=== PATIENT | female | born 1960 | race Caucasian/White ===

== ENCOUNTER 2018-07-28 09:42 | Inpatient (IN) | payer BC ==
[2018-07-28] MEDS ORDERED: HYDROmorphone 1 MG/ML 1 ML SYRINGE IVP STA (09:55)
[2018-07-28] MEDS ORDERED: ONDANSETRON 4 MG/2 ML VIAL IVP STA (09:55)
[2018-07-28] MEDS ORDERED: IBUPROFEN IV 600 MG in SODIUM CHLORIDE 0.9% 250 ML IV STA (10:03)
[2018-07-28] MEDS ORDERED: ACETAMINOPHEN IV (For NPO) 1,000 MG in EMPTY BAG 1 BAG IVPB STA (10:03)
--- NOTE | 2018-07-28 10:06 | ED ---
General Adult HPI - General Chief complaint: Abdominal Pain Stated complaint: ABD PAIN Time Seen by Provider: 07/28/18 09:55 Source: patient, RN notes reviewed Mode of arrival: ambulatory Limitations: no limitations - History of Present Illness Initial comments: This is a 57-year-old female who presents emergency Department with a past medical history significant for terminal bladder cancer. Patient had metastatic disease retroperitoneal area she has 2 nephrostomy tubes and supposedly at some point had a perforation of the bladder which they did nothing about. Patient has recently moved to the area and has not seen her oncologist yet. Patient comes in today complaining of lower abdominal pain. According to EMS when she got up and sat up and went to the bathroom the pain was much improved. Patient denies knowing of any fever or chills. Patient denies any chest pain difficulty breathing shortness of breath. Patient states she has diffuse abdominal pain that waxes and wanes. Patient states she doesn' t have any urine through her urethra. Patient denies any recent injury or trauma. - Related Data Home Medications Medication Instructions Recorded Confirmed Ferrous Sulfate [Feosol] 325 mg PO DAILY@1000 07/28/18 07/28/18 Gabapentin [Neurontin] 300 mg PO BID@1000,2200 07/28/18 07/28/18 Melatonin 10 mg PO HS@2200 07/28/18 07/28/18 Oxybutynin Chloride [Ditropan] 5 mg PO BID@1000,0 07/28/18 07/28/18 Sennosides [Senna] 17.2 mg PO BID@1000,2200 07/28/18 07/28/18 fentaNYL 100MCG/HR PATCH 1 patch TRANSDERM Q72H 07/28/18 07/28/18 [Duragesic 100MCG/HR] oxyCODONE HCL [OxyIR] 5 mg PO BID@1000,2200 07/28/18 07/28/18 Allergies Allergy/AdvReac Type Severity Reaction Status Date / Time No Known Allergies Allergy Verified 07/28/18 10:09 Review of Systems ROS Statement: Those systems with pertinent positive or pertinent negative responses have been documented in the HPI. ROS Other: All systems not noted in ROS Statement are negative. Past Medical History Past Medical History: Cancer Additional Past Medical History / Comment(s): stage IV bladder cancer History of Any Multi-Drug Resistant Organisms: None Reported Past Surgical History: Bladder Surgery Past Psychological History: No Psychological Hx Reported Smoking Status: Never smoker Past Alcohol Use History: None Reported Past Drug Use History: None Reported General Exam - General Exam Comments Initial Comments: GENERAL: Patient is well-developed and well-nourished. Patient is nontoxic and well- hydrated and is in mild distress. ENT: Neck is soft and supple. No significant lymphadenopathy is noted. Oropharynx is clear. Moist mucous membranes. Neck has full range of motion without eliciting any pain. EYES: The sclera were anicteric and conjunctiva were pink and moist. Extraocular movements were intact and pupils were equal round and reactive to light. Eyelids were unremarkable. PULMONARY: Unlabored respirations. Good breath sounds bilaterally. No audible rales rhonchi or wheezing was noted. CARDIOVASCULAR: There is a regular rate and rhythm without any murmurs gallops or rubs. ABDOMEN: Patient has tenderness diffusely throughout the abdomen no rebound is noted SKIN: Skin is clear with no lesions or rashes and otherwise unremarkable. NEUROLOGIC: Patient is alert and oriented x3. Cranial nerves II through XII are grossly intact. Motor and sensory are also intact. Normal speech, volume and content. Symmetrical smile. MUSCULOSKELETAL: Normal extremities with adequate strength and full range of motion. 1+ edema bilaterally LYMPHATICS: No significant lymphadenopathy is noted PSYCHIATRIC: Normal psychiatric evaluation. Limitations: no limitations Course Vital Signs 07/28/18 07/28/18 09:56 11:00 Temperature 100.4 F H Pulse Rate 95 75 Respiratory 18 18 Rate Blood Pressure 124/75 115/76 O2 Sat by Pulse 98 100 Oximetry Medical Decision Making - Medical Decision Making CAT scan shows possible neoplasm of the bladder as well as possible metastases to the liver. A little colitis Patient has a urinary infection I started the patient on Rocephin. Patient was feeling more comfortable with the pain medication she received. She felt comfortable staying in the hospital she wanted go back home I spoke with Dr. Cagle he agreed to admit I admitted the patient I consulted hospice EKG shows normal sinus rhythm at 71 bpm NJ interval is 112 QRS is 100 QT interval 442 QTC is 480. Patient's EKG shows Q waves in V1 and V2 and V3 no ST segment elevations noted - Lab Data Result diagrams: 07/28/18 10:19 07/28/18 10:19 Lab Results 02/07/28/18 07/28/18 Range/Units 10:19 10:19 10:19 WBC 6.4 (3.8-10.6) k/uL RBC 3.62 L (3.80-5.40) m/uL Hgb 10.6 L (11.4-16.0) gm/dL Hct 33.2 L (34.0-46.0) % MCV 91.8 (80.0-100.0) fL MCH 29.3 (25.0-35.0) pg MCHC 31.9 (31.0-37.0) g/dL RDW 15.7 H (11.5-15.5) % Plt Count 145 L (150-450) k/uL Neutrophils % 81 % Lymphocytes % 12 % Monocytes % 5 % Eosinophils % 1 % Basophils % 0 % Neutrophils # 5.2 (1.3-7.7) k/uL Lymphocytes # 0.7 L (1.0-4.8) k/uL Monocytes # 0.3 (0-1.0) k/uL Eosinophils # 0.1 (0-0.7) k/uL Basophils # 0.0 (0-0.2) k/uL PT (9.0-12.0) sec INR (<1.2) APTT (22.0-30.0) sec Sodium 135 L (137-145) mmol/L Potassium 3.1 L (3.5-5.1) mmol/L Chloride 98 (98-107) mmol/L Carbon Dioxide 29 (22-30) mmol/L Anion Gap 8 mmol/L BUN 8 (7-17) mg/dL Creatinine 0.77 (0.52-1.04) mg/dL Est GFR (CKD-EPI)AfAm >90 (>60 ml/min/1.73 sqM) Est GFR (CKD-EPI)NonAf 85 (>60 ml/min/1.73 sqM) Glucose 104 H (74-99) mg/dL Plasma Lactic Acid Bassam 1.1 (0.7-2.0) mmol/L Calcium 8.3 L (8.4-10.2) mg/dL Total Bilirubin 0.5 (0.2-1.3) mg/dL AST 25 (14-36) U/L ALT 26 (9-52) U/L Alkaline Phosphatase 153 H (38-126) U/L Total Protein 5.7 L (6.3-8.2) g/dL Albumin 2.4 L (3.5-5.0) g/dL Urine Color Urine Appearance (Clear) Urine pH (5.0-8.0) Ur Specific [place] (1.001-1.035) Urine Protein (Negative) Urine Glucose (UA) (Negative) Urine Ketones (Negative) Urine Blood (Negative) Urine Nitrite (Negative) Urine Bilirubin (Negative) Urine Urobilinogen (<2.0) mg/dL Ur Leukocyte Esterase (Negative) Urine RBC (0-5) /hpf Urine WBC (0-5) /hpf Urine Bacteria (None) /hpf Hyaline Casts (0-2) /lpf Urine Mucus (None) /hpf 07/28/18 07/28/18 Range/Units 10:19 10:19 WBC (3.8-10.6) k/uL RBC (3.80-5.40) m/uL Hgb (11.4-16.0) gm/dL Hct (34.0-46.0) % MCV (80.0-100.0) fL MCH (25.0-35.0) pg MCHC (31.0-37.0) g/dL RDW (11.5-15.5) % Plt Count (150-450) k/uL Neutrophils % % Lymphocytes % % Monocytes % % Eosinophils % % Basophils % % Neutrophils # (1.3-7.7) k/uL Lymphocytes # (1.0-4.8) k/uL Monocytes # (0-1.0) k/uL Eosinophils # (0-0.7) k/uL Basophils # (0-0.2) k/uL PT 12.2 H (9.0-12.0) sec INR 1.2 H (<1.2) APTT 26.2 (22.0-30.0) sec Sodium (137-145) mmol/L Potassium (3.5-5.1) mmol/L Chloride (98-107) mmol/L Carbon Dioxide (22-30) mmol/L Anion Gap mmol/L BUN (7-17) mg/dL Creatinine (0.52-1.04) mg/dL Est GFR (CKD-EPI)AfAm (>60 ml/min/1.73 sqM) Est GFR (CKD-EPI)NonAf (>60 ml/min/1.73 sqM) Glucose (74-99) mg/dL Plasma Lactic Acid Bassam (0.7-2.0) mmol/L Calcium (8.4-10.2) mg/dL Total Bilirubin (0.2-1.3) mg/dL AST (14-36) U/L ALT (9-52) U/L Alkaline Phosphatase (38-126) U/L Total Protein (6.3-8.2) g/dL Albumin (3.5-5.0) g/dL Urine Color Yellow Urine Appearance Cloudy H (Clear) Urine pH 7.5 (5.0-8.0) Ur Specific [place] 1.022 (1.001-1.035) Urine Protein 2+ H (Negative) Urine Glucose (UA) Negative (Negative) Urine Ketones Trace H (Negative) Urine Blood Moderate H (Negative) Urine Nitrite Negative (Negative) Urine Bilirubin Negative (Negative) Urine Urobilinogen <2.0 (<2.0) mg/dL Ur Leukocyte Esterase Large H (Negative) Urine RBC >182 H (0-5) /hpf Urine WBC 138 H (0-5) /hpf Urine Bacteria Few H (None) /hpf Hyaline Casts 9 H (0-2) /lpf Urine Mucus Many H (None) /hpf Disposition Clinical Impression: Urinary tract infection, Abdominal pain Disposition: ADMITTED IP TO THIS [facility] Referrals: None,Stated [Primary Care Provider] - 1-2 days Time of Disposition: 12:10
[2018-07-28] MEDS: SODIUM CHLORIDE 0.9% 500 ML 500 ML IV SCH ×2 (10:33→11:03)
[2018-07-28 10:43] LABS: Basophils % (A) 0 %; Eosinophils # (A) 0.1 k/uL (0-0.7); Eosinophils % (A) 1 %; HCT 33.2 % (34.0-46.0); HGB 10.6 gm/dL (11.4-16.0); Lymphocytes # (A) 0.7 k/uL (1.0-4.8); Lymphocytes % (A) 12 %; MCH 29.3 pg (25.0-35.0); MCHC 31.9 g/dL (31.0-37.0); MCV 91.8 fL (80.0-100.0); Mean Platelet Volume 6.7; Monocytes # (A) 0.3 k/uL (0-1.0); Monocytes % (A) 5 %; Neutrophils # (A) 5.2 k/uL (1.3-7.7); Neutrophils % (A) 81 %; Platelet Count 145 k/uL (150-450); RBC 3.62 m/uL (3.80-5.40); RDW 15.7 % (11.5-15.5); WBC 6.4 k/uL (3.8-10.6)
[2018-07-28 10:52] LABS: ALT 26 U/L (9-52); AST 25 U/L (14-36); Albumin 2.4 g/dL (3.5-5.0); Alkaline Phosphatase 153 U/L (38-126); Anion Gap 8 mmol/L; Blood Urea Nitrogen 8 mg/dL (7-17); Calcium 8.3 mg/dL (8.4-10.2); Carbon Dioxide 29 mmol/L (22-30); Chloride 98 mmol/L (98-107); Glucose 104 mg/dL (74-99); Potassium 3.1 mmol/L (3.5-5.1); Sodium 135 mmol/L (137-145); Total Bilirubin 0.5 mg/dL (0.2-1.3); Total Protein 5.7 g/dL (6.3-8.2)
[2018-07-28 10:57] LABS: INR 1.2 (<1.2); Partial Thromboplastin Time 26.2 sec (22.0-30.0); Prothrombin Time 12.2 sec (9.0-12.0)
--- NOTE | 2018-07-28 11:36 | CT ---
EXAMINATION TYPE: CT abdomen pelvis w con DATE OF EXAM: 07/28/2018 COMPARISON: None INDICATION: generalized pain, nausea, vomiting DLP: 1097.9 mGycm, Automated exposure control for dose reduction was used. CONTRAST: 100 mL of Isovue 300. Study performed without Oral Contrast TECHNIQUE: Axial images were obtained from above the diaphragm to the pubic rami in the axial plane a t 5 mm thick sections. Reconstructed images are reviewed on the computer in the coronal plane. FINDINGS: Limited CT sections are obtained the lung bases. There is a small left pleural effusion. Some adjace nt compressive atelectasis is present.. CT ABDOMEN: Liver: There is moderate fatty infiltration to the liver. There is some hypodensity within the medial right lobe liver. This has a transverse dimension of 1.8 cm an ill-defined margins. An additional ar ea adjacent to ligamentum teres has more circumscribed margins measures 1.9 cm and 1 Hounsfield unit is likely a cyst. Adjacent smaller cysts may be present. This could be multiloculated complex cyst. Spleen: Normal Pancreas: Normal Adrenal glands: The adrenal glands are normal. Gallbladder: Normal Kidneys: No masses are evident. No hydronephrosis is present. Bilateral nephrostomy tubes have their tips curled within the renal pelves. No cysts are present. Delayed images were obtained through the kidneys, which remain unremarkable. Couple of periaortic lymph nodes are at the level of the renal v eins measuring 0.7 to 0.8 cm in size. This is not enlarged by CT criteria. Aorta: Vascular calcification is within the aorta. Inferior vena cava: Normal. CT PELVIS: Loops of bowel are nondistended. However, there is a suggestion of some mild diffuse wall thickening through the ascending and transverse colon. The mid and distal descending colon is more normal appear ance. Sigmoid colon and rectum has more normal appearance. Consider colitis within the differential. Studies performed without oral contrast limiting bowel evaluation. Appendix: Normal as visualized. Urinary bladder: The urinary bladder is air-filled. Some fluid is within the urinary bladder. Urinary bladder corrales are thickened and somewhat irregular. Genitourinary structures: Uterus appears normal. Adnexal regions are clear. Osseous structures: No suspicious lytic or sclerotic lesions. Facet degenerative changes are within t he lumbar spine. IMPRESSIONS: 1. Irregular thickened urinary bladder wall which contains air. Urinary bladder neoplasm should be c onsidered. 2. Bilateral nephrostomy tubes without hydronephrosis. 3. Mild diffuse wall thickening within nondistended ascending and transverse colon to the splenic fle xure. Consider colitis potentially within the differential. Remaining bowel loops appear unremarkable . 4. Small left pleural effusion. 5. Irregular hypodense area within the superior right medial lobe liver. Neoplasm and complex cyst co uld be within the differential. 6. Moderate fatty infiltration to the liver. 7. Couple of additional hypodensities within the liver more likely related to complex cysts.
[2018-07-28 11:48] LABS: Appearance,Urine Cloudy (Clear); Bacteria,Urine Few /hpf; Bilirubin,Urine Negative (Negative); Blood,Urine Moderate (Negative); Color,Urine Yellow; Glucose,Urine (UA) Negative (Negative); Hyaline Casts,Urine 9 /lpf (0-2); Ketones,Urine Trace (Negative); Leukocyte Esterase,Urine Large (Negative); Mucus,Urine Many /hpf; Nitrite,Urine Negative (Negative); PH, Urine 7.5 (5.0-8.0); Protein,Urine 2+ (Negative); RBC,Urine >182 /hpf (0-5); Specific Gravity,Urine 1.022 (1.001-1.035); Urobilinogen,Urine <2.0 mg/dL (<2.0); WBC,Urine 138 /hpf (0-5)
[2018-07-28] MEDS ORDERED: SODIUM CHLORIDE 0.9% 1,000 ML IV ONE (12:16)
[2018-07-28] MEDS: HYDROmorphone 1 MG/ML 1 ML SYRINGE IVP PRN (17:57)
[2018-07-28] MEDS: GABAPENTIN 300 MG CAP PO SCH (21:24)
[2018-07-28] MEDS: OXYBUTYNIN CHLORIDE 5 MG TAB PO SCH (21:24)
[2018-07-28] MEDS ORDERED: MELATONIN 5 MG TABLET PO SCH (22:00)
[2018-07-29] MEDS: HYDROmorphone 1 MG/ML 1 ML SYRINGE IVP PRN ×2 (02:58→09:11)
--- NOTE | 2018-07-29 05:48 | HP ---
HISTORY AND PHYSICAL DATE OF ADMISSION: 07/28/2018 DATE OF SERVICE: 07/28/2018 PRESENTING COMPLAINT: Pelvic pain. HISTORY OF PRESENTING COMPLAINT: This is a very pleasant 57-year-old patient who will be establishing herself with Dr. Geiger. The patient has just moved from [place] to live with her daughter, Dianna Mascorro. The patient was diagnosed with bladder cancer down in [place] and this has been stage IV metastatic. The patient did complete chemotherapy and radiation treatment and as per the patient really did not benefit her much. Her oncologist did talk about immunotherapy, but thought it will be of minimal benefit. The patient moved to [place] with the idea of possibly hospice. The patient's pain is present on and off and has noticed more nausea in the last 2 weeks especially the last 2 days. Duragesic patch was increased to 100 mcg. Appetite has been decreased. The patient has lost about 100 pounds in last 2 years. The patient's preference is to spend time with her family. They also have been looking into hospice house and [facility] was consulted earlier this morning. Patient does use a sleep apnea machine. Otherwise, patient is able to get about. REVIEW OF SYSTEMS: CONSTITUTIONAL: Tired, decreased appetite, weight loss. HEENT: None. RESPIRATORY: None. CARDIOVASCULAR: None. GASTROINTESTINAL: As above. GENITOURINARY: None. MUSCULOSKELETAL: None. DERMATOLOGICAL: None. HEMATOLOGIC: None. LYMPHATICS: None. PSYCHIATRY: None. NEUROLOGICAL: None. PAST MEDICAL HISTORY: Past medical history of bladder cancer, metastatic, stage IV, obstructive sleep apnea. PAST SURGICAL HISTORY: Bladder surgery, tonsillectomy, bilateral nephrostomy tubes placed in April of last year. PSYCH HISTORY: Claustrophobia. SOCIAL HISTORY: The patient does marijuana occasionally. Smoked a pack a day for 20 years, stopped in 2013. Moved from [place]. 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 FAMILY HISTORY: Family history of cancer, hypothyroidism. HOME MEDICATIONS: 1. Senna 17.2 mg p.o. b.i.d. 2. Melatonin 10 mg q.h.s. 3. Ferrous sulfate 325 p.o. daily. 4. Oxycodone 5 mg p.o. b.i.d. 5. Ditropan 5 mg p.o. b.i.d. 6. Neurontin 300 mg b.i.d. 7. Fentanyl 100 mcg patch every 72 hours. ALLERGIES: None. PHYSICAL EXAMINATION: On examination, temperature 97.1, pulse 64, respirations 16, blood pressure 116/72, pulse ox 98% on room air. GENERAL APPEARANCE: Average built, BMI 32.3, lying in bed, a bit tired appearing. EYES: Pupils equal. Conjunctivae pale. HENT: External appearance of nose and ears normal. Oral cavity normal. NECK: JVD not raised. Mass not palpable. RESPIRATORY: Effort normal. LUNGS: Fair entry. CARDIOVASCULAR: First and second sounds normal, no edema. ABDOMEN: Soft. Minimal suprapubic tenderness. Liver and spleen not palpable. Nephrostomy tube bilateral placed. LYMPHATIC: No lymph node palpable in neck or axillae. PSYCHIATRY: Alert and oriented x3. Mood and affect normal. NEUROLOGICAL: Pupils equal. Cranial nerves grossly intact. Power and sensation grossly intact. INVESTIGATIONS: White count 6.4, hemoglobin 10.6, platelets 145. Potassium 3.1. BUN 8, creatinine 0.77. Albumin 2.4. UA positive for leukocyte esterase, WBC. ASSESSMENT: 1. Acute severe urinary tract infection probably from cystitis. 2. Metastatic bladder cancer, stage IV, status post chemo and radiation treatment, not really felt to suppose to get any further benefit from immunotherapy. 3. Obstructive sleep apnea, uses CPAP machine. 4. Obesity; body mass index 32.3. 5. Medical asthenia from underlying malignancy. 6. Hypoalbuminemia from mild protein calorie malnutrition. 7. Hypokalemia. 8. Nausea, likely a side effect of pain medication including heavy dose of fentanyl patch. PLAN: I had a very lengthy talk with the patient. Decided to cut back the dose of fentanyl to 50, use her short-acting morphine on a p.r.n. basis as the pain is not present all the time. We will also use baclofen for muscle spasm. I encouraged the patient to keep increasing her oral intake. ADVANCED CARE PLANNING: This was discussed at length with the patient. The patient was due to see Dr. Geiger and then to see oncologist at [place], but at this point patient feels that no further treatment will be helpful to her as she is not keen to and she would rather spend time with her family than running to a specialist, especially the prognosis is poor. At this point, if symptoms are controlled. She would rather want to go home, use pain medications. When the time comes, she would like to go to the [facility]. [facility] has already been consulted for the same. The patient's daughter Dianna is involved greatly in her care. About 30 minutes was spent in the advanced care planning part. Discussed at length with the patient. DEREK / REJI: [id number] /
[2018-07-29] MEDS ORDERED: ENOXAPARIN 40 MG/0.4 ML SYRINGE SQ SCH (09:00)
[2018-07-29] MEDS ORDERED: FAMOTIDINE 20 MG TAB PO SCH (09:00)
[2018-07-29] MEDS ORDERED: PSYLLIUM HUSK 100% 6 GM PACKET PO SCH (09:00)
[2018-07-29] MEDS: OXYBUTYNIN CHLORIDE 5 MG TAB PO SCH (09:09)
[2018-07-29] MEDS: NAPROXEN 250 MG TAB PO SCH ×2 (09:09→11:46)
[2018-07-29] MEDS: GABAPENTIN 300 MG CAP PO SCH (09:10)
[2018-07-29] MEDS: BACLOFEN 10 MG TAB PO SCH ×2 (11:50→17:08)
[2018-07-29 15:43] VITALS: BP 118/75; PULSE 76; RESP 18; TEMP 98.3
--- NOTE | 2018-07-30 11:17 | DS ---
DISCHARGE SUMMARY DATE OF ADMISSION: 07/28/2018 DATE OF DISCHARGE: 07/29/2018 FINAL DIAGNOSES: 1. Acute severe urinary tract infection from cystitis. 2. Metastatic bladder cancer, stage IV, status post chemo and radiation treatment, causing pain. 3. Obstructive sleep apnea, uses CPAP machine. 4. Obesity; body mass index 32.3. 5. Medical asthenia from underlying malignancy. 6. Constipation as a side effect of pain medications. 7. Hypoalbuminemia from mild protein calorie malnutrition. 8. Nausea is side effect of increased dose of fentanyl. 9. Hypokalemia. HOSPITAL COURSE: Please see my H and P for more details. The patient has known stage IV bladder cancer, metastatic, status post chemo and radiation. Her oncologist did tell her that any immunotherapy will not really benefit. Patient's dose of fentanyl was cut back from 100 to 50 and told her to take OxyContin on a p.r.n. basis. Other medications including baclofen and NSAIDs were added for pain control. Patient's nephrostomy tube is being scheduled with Interventional Radiology to be changed. The patient will remain on palliative care as she is rather active and patient had already contacted Visiting Nurses and patient will be going to the [facility] down the road. Care was discussed with the patient at length. All questions were answered. Also spoke to patient's daughter Qiana over the phone. Questions were answered. Discussion and discharge planning more than 35 minutes. PHYSICAL EXAMINATION: Temperature, 98.3, pulse 76, respiration 18, blood pressure 108/75, pulse ox 96% on room air. LUNGS: Fair entry. ABDOMEN: Soft, nontender. PSYCH: Alert and oriented x3. INVESTIGATIONS: White count 6.4, hemoglobin 10.6, potassium 3.1. Urine culture negative. DISCHARGE MEDICATIONS: 1. Ferrous sulfate 325 p.o. daily. 2. Neurontin 300 mg p.o. b.i.d. 3. Melatonin 10 mg q.h.s. 4. Ditropan 5 mg b.i.d. 5. Senna 17.2 p.o. b.i.d. 6. Baclofen 5 mg p.o. t.i.d. p.r.n. 7. Pepcid 20 mg p.o. b.i.d. 8. Naproxen 250 mg p.o. t.i.d. 9. Metamucil 6 g p.o. b.i.d. 10.Duragesic 50 mcg patch. 11.Oxycodone 5 mg p.o. b.i.d. p.r.n. 12.Discontinued Fentanyl patch. 13.Levaquin 250 mg a day for 7 days. FOLLOWUP: Follow up with Dr. Geiger on 08/02/2018. Patient is scheduled for a bilateral nephrostomy tube to be replaced on 08/02/2018 at 9 a.m. MMLESLEYL / IJN: [id number] /
== END 2018-07-29 18:45 | disposition home health service (06) | DRG 690 ==
LOC: EC 09:42 → 3NMEDONC 12:16
PROVIDERS: ADMIT Hospitalist; ATTEND Hospitalist
DX: N30.00 Acute cystitis without hematuria (principal); E44.1 Mild protein-calorie malnutrition; C78.6 Secondary malignant neoplasm of retroperitoneum and peritoneum; G47.33 Obstructive sleep apnea (adult) (pediatric); F40.240 Claustrophobia; E87.6 Hypokalemia; E66.9 Obesity, unspecified; R11.0 Nausea; T40.4X5A Adverse effect of other synthetic narcotics, initial encounter; Z79.891 Long term (current) use of opiate analgesic; Z79.899 Other long term (current) drug therapy; Z92.21 Personal history of antineoplastic chemotherapy; Z92.3 Personal history of irradiation; Z99.89 Dependence on other enabling machines and devices; Z87.891 Personal history of nicotine dependence; Z80.9 Family history of malignant neoplasm, unspecified; Z83.49 Family history of other endocrine, nutritional and metabolic diseases; Z68.32 Body mass index [BMI] 32.0-32.9, adult; Z93.6 Other artificial openings of urinary tract status
CPT/HCPCS: 36415; 74177; 80053; 81001; 83605; 85025; 85610; 85730; 87040; 87086; 93005; 96365; 96367; 96375; 99285

== ENCOUNTER 2018-07-30 11:02 | Emergency (ER) | payer BC ==
[2018-07-30 11:06] VITALS: TEMP 98
--- NOTE | 2018-07-30 12:03 | ED ---
Extremity Problem HPI - General Chief complaint: Extremity Problem,Nontraumatic Stated complaint: Leg swelling Time Seen by Provider: 07/30/18 11:08 Source: patient, family Mode of arrival: wheelchair Limitations: no limitations - History of Present Illness Initial comments: This is a 57-year-old female who presents with complaints of bilateral lower extremity swelling and pain more so on the left than the right recently treated. She is back today she recently did come back from [place] where she drove for 2 days to get that there. This is about 2 weeks ago. No shortness breath no chest pain no fevers chills nausea vomiting sweats or other symptoms. MD Complaint: extremity pain, extremity swelling - Related Data Home Medications Medication Instructions Recorded Confirmed Ferrous Sulfate [Iron (65 MG 325 mg PO DAILY@1000 07/28/18 07/30/18 Elemental)] Gabapentin [Neurontin] 300 mg PO BID@1000,2200 07/28/18 07/30/18 Melatonin 10 mg PO HS@2200 07/28/18 07/30/18 Oxybutynin Chloride [Ditropan] 5 mg PO BID@1000,2200 07/28/18 07/30/18 Sennosides [Senna] 17.2 mg PO BID 07/28/18 07/30/18 oxyCODONE HCL [OxyIR] 5 mg PO DAILY PRN 07/30/18 07/30/18 Previous Rx's Medication Instructions Recorded Famotidine [Pepcid] 20 mg PO BID #60 tab 07/29/18 Psyllium Husk 100% [Metamucil 6 gm PO BID #60 packet 07/29/18 Packet] fentaNYL 50MCG/HR PATCH [Duragesic 1 patch TRANSDERM Q72H #5 patch 07/29/18 50MCG/HR] Apixaban [Eliquis] 5 mg PO BID #40 tab 07/30/18 Apixaban [Eliquis] 10 mg PO BID #20 tab 07/30/18 Baclofen 5 mg PO Q8H PRN #20 tablet 07/30/18 Allergies Allergy/AdvReac Type Severity Reaction Status Date / Time No Known Allergies Allergy Verified 07/30/18 11:24 Review of Systems ROS Statement: Those systems with pertinent positive or pertinent negative responses have been documented in the HPI. ROS Other: All systems not noted in ROS Statement are negative. Past Medical History Past Medical History: Cancer, Sleep Apnea/CPAP/BIPAP Additional Past Medical History / Comment(s): stage IV bladder cancer- completed chemo september 2017 and completed radiation - stated had high blood pressure after chemo took meds for it untill apr 2018. has cpap machine History of Any Multi-Drug Resistant Organisms: None Reported Past Surgical History: Bladder Surgery, Tonsillectomy Additional Past Surgical History / Comment(s): bridgette nephrostomy tubes(apr 2018) bladder sx-"scrapping" Past Anesthesia/Blood Transfusion Reactions: Motion Sickness Additional Past Anesthesia/Blood Transfusion Reaction / Comment(s): clausterphobia. has had blood transfusions -no reaction to it Past Psychological History: No Psychological Hx Reported Smoking Status: Former smoker Past Alcohol Use History: None Reported Past Drug Use History: Marijuana - Past Family History Mother Additional Family Medical History / Comment(s): hypotension Father Family Medical History: Cancer Additional Family Medical History / Comment(s): bladder cancer General Exam - General Exam Comments Initial Comments: This is a well-developed well-nourished awake alert oriented 3 female Limitations: no limitations General appearance: alert, in no apparent distress Head exam: Present: atraumatic, normocephalic, normal inspection Eye exam: Present: normal appearance, PERRL, EOMI. Absent: scleral icterus, conjunctival injection, periorbital swelling ENT exam: Present: normal exam, mucous membranes moist Neck exam: Present: normal inspection. Absent: tenderness, meningismus, lymphadenopathy Respiratory exam: Present: normal lung sounds bilaterally. Absent: respiratory distress, wheezes, rales, rhonchi, stridor Cardiovascular Exam: Present: regular rate, normal rhythm, normal heart sounds, other (On my exam). Absent: systolic murmur, diastolic murmur, rubs, gallop, clicks GI/Abdominal exam: Present: soft, normal bowel sounds. Absent: distended, tenderness, guarding, rebound, rigid Extremities exam: Present: full ROM, tenderness (Edema noted to the left calf compared to the right some tenderness palpation over the anterior medial aspect of the distal thigh and the left. No sensorimotor or vascular deficits), normal capillary refill. Absent: pedal edema, joint swelling, calf tenderness Back exam: Present: normal inspection Neurological exam: Present: alert, oriented X3, CN II-XII intact Psychiatric exam: Present: normal affect, normal mood Skin exam: Present: warm, dry, intact, normal color. Absent: rash Course Vital Signs 07/30/18 11:02 Temperature 98 F Pulse Rate 115 H Respiratory 18 Rate Blood Pressure 108/80 O2 Sat by Pulse 98 Oximetry Medical Decision Making - Medical Decision Making I did discuss findings with the patient and her daughter was present. Also with Dr. Cagle. Patient be started on Eliquis in emergency department and sent home with a prescription. Her hemoglobin is stable as of 2 days ago 10.6. No increase in her bleeding. This time further testing and is not indicated. - Radiology Data Radiology results: report reviewed (I did review the imaging and report evidence of DVT in the left lower extremity. Please see the complete report), image reviewed Disposition Clinical Impression: Deep vein thrombosis of lower extremity, Malignant neoplasm metastatic from bladder, Chronic anemia Disposition: HOME SELF-CARE Condition: Good Instructions (If sedation given, give patient instructions): Deep Vein Thrombosis (ED), Deep Vein Thrombosis Prevention (ED) Additional Instructions: Compression stockings Prescriptions: Apixaban [Eliquis] 10 mg PO BID #20 tab Apixaban [Eliquis] 5 mg PO BID #40 tab Is patient prescribed a controlled substance at d/c from ED?: No Referrals: Howard Geiger DO [Primary Care Provider] - 1-2 days
--- NOTE | 2018-07-30 12:34 | US ---
EXAMINATION TYPE: US venous doppler duplex LE DATE OF EXAM: 07/30/2018 11:29 AM COMPARISON: NONE CLINICAL HISTORY: Pain. left leg pain and swelling, no h/o dvt SIDE PERFORMED: Bilateral TECHNIQUE: The lower extremity deep venous system is examined utilizing real time linear array sonog brendan with graded compression, doppler sonography and color-flow sonography. VESSELS IMAGED: External Iliac Vein (EIV) Common Femoral Vein Deep Femoral Vein Greater Saphenous Vein * Femoral Vein Popliteal Vein Small Saphenous Vein * Proximal Calf Veins (* superficial vessels) Right Leg: Appears negative for DVT. There is normal flow, compressibility, vascular waveforms. Left Leg: Internal echoes with minimal to no flow detected throughout left leg, unable to fully comp ress vein from proximal calf veins extending up through left EIV. IMPRESSION: Left lower extremity deep venous thrombosis seen throughout the distribution of the ex ternal iliac vein to the level of the knee
[2018-07-30] MEDS ORDERED: APIXABAN 5 MG TAB PO STA (12:40)
[2018-07-30 13:45] VITALS: BP 124/81; PULSE 81; RESP 19
== END 2018-07-30 13:49 | disposition home or self-care (01) ==
LOC: EC 11:02
DX: I82.402 Acute embolism and thrombosis of unspecified deep veins of left lower extremity (principal); C67.9 Malignant neoplasm of bladder, unspecified; C79.9 Secondary malignant neoplasm of unspecified site; D64.9 Anemia, unspecified; G47.30 Sleep apnea, unspecified; Z99.89 Dependence on other enabling machines and devices; Z92.21 Personal history of antineoplastic chemotherapy; Z87.891 Personal history of nicotine dependence; Z79.899 Other long term (current) drug therapy
CPT/HCPCS: 93970; 99284

== ENCOUNTER 2018-08-08 14:13 | Inpatient (IN) | payer BC ==
[2018-08-08] MEDS ORDERED: IBUPROFEN 600 MG TAB PO STA (15:05)
--- NOTE | 2018-08-08 15:07 | ED ---
General Adult HPI - General Chief complaint: Fever Stated complaint: Fever Time Seen by Provider: 08/08/18 14:30 Source: patient, RN notes reviewed Mode of arrival: wheelchair Limitations: no limitations - History of Present Illness Initial comments: This is a 57-year-old female who presents emergency Department complaining of having had a fever. Patient denies any new cough patient denies any chest pain or difficulty breathing. Patient denies any skin lesions rashes or erythematous areas. Patient states she did not get her flu shot. Patient has 2 nephrostomy tube secondary to her bladder cancer. She has had a urinary tract infection was last on antibiotics a couple weeks ago. Patient states she hasn't noted any change in the output or color of the year. Patient denies any abdominal pain or back pain. Patient denies any other symptoms at this time. - Related Data Home Medications Medication Instructions Recorded Confirmed Ferrous Sulfate [Iron (65 MG 325 mg PO DAILY@1000 07/28/18 08/08/18 Elemental)] Gabapentin [Neurontin] 300 mg PO BID@1000,2200 07/28/18 08/08/18 Melatonin 10 mg PO HS@2200 07/28/18 08/08/18 Oxybutynin Chloride [Ditropan] 5 mg PO BID@1000,2200 07/28/18 08/08/18 Sennosides [Senna] 17.2 mg PO BID 07/28/18 08/08/18 oxyCODONE HCL [OxyIR] 5 mg PO Q3H PRN 07/30/18 08/08/18 Apixaban [Eliquis] See Taper PO BID 08/08/18 08/08/18 Ondansetron [Zofran] 4 mg PO Q12HR PRN 08/08/18 08/08/18 Previous Rx's Medication Instructions Recorded fentaNYL 50MCG/HR PATCH [Duragesic 1 patch TRANSDERM Q72H #5 patch 07/29/18 50MCG/HR] Allergies Allergy/AdvReac Type Severity Reaction Status Date / Time No Known Allergies Allergy Verified 08/08/18 15:02 Review of Systems ROS Statement: Those systems with pertinent positive or pertinent negative responses have been documented in the HPI. ROS Other: All systems not noted in ROS Statement are negative. Past Medical History Past Medical History: Cancer, Deep Vein Thrombosis (DVT), Sleep Apnea/CPAP/BIPAP Additional Past Medical History / Comment(s): stage IV bladder cancer- completed chemo september 2017 and completed radiation - stated had high blood pressure after chemo took meds for it untill apr 2018. has cpap machine History of Any Multi-Drug Resistant Organisms: None Reported Past Surgical History: Bladder Surgery, Tonsillectomy Additional Past Surgical History / Comment(s): bridgette nephrostomy tubes(apr 2018) bladder sx-"scrapping" Past Anesthesia/Blood Transfusion Reactions: Motion Sickness Additional Past Anesthesia/Blood Transfusion Reaction / Comment(s): clausterphobia. has had blood transfusions -no reaction to it Past Psychological History: No Psychological Hx Reported Smoking Status: Former smoker Past Alcohol Use History: None Reported Past Drug Use History: Marijuana - Past Family History Mother Additional Family Medical History / Comment(s): hypotension Father Family Medical History: Cancer Additional Family Medical History / Comment(s): bladder cancer General Exam - General Exam Comments Initial Comments: GENERAL: Patient is well-developed and well-nourished. Patient is nontoxic and well- hydrated and is in mild distress. ENT: Neck is soft and supple. No significant lymphadenopathy is noted. Oropharynx is clear. Moist mucous membranes. Neck has full range of motion without eliciting any pain. EYES: The sclera were anicteric and conjunctiva were pink and moist. Extraocular movements were intact and pupils were equal round and reactive to light. Eyelids were unremarkable. PULMONARY: Unlabored respirations. Good breath sounds bilaterally. No audible rales r honchi or wheezing was noted. CARDIOVASCULAR: There is a regular rate and rhythm without any murmurs gallops or rubs. ABDOMEN: Soft and nontender with normal bowel sounds. No palpable organomegaly was noted. There is no palpable pulsatile mass. SKIN: Skin is clear with no lesions or rashes and otherwise unremarkable. NEUROLOGIC: Patient is alert and oriented x3. Cranial nerves II through XII are grossly intact. Motor and sensory are also intact. Normal speech, volume and content. Symmetrical smile. MUSCULOSKELETAL: Normal extremities with adequate strength and full range of motion. No lower extremity swelling or edema. No calf tenderness. LYMPHATICS: No significant lymphadenopathy is noted PSYCHIATRIC: Normal psychiatric evaluation. Limitations: no limitations Course Vital Signs 08/08/18 08/08/18 08/08/18 14:27 16:50 17:00 Temperature 102.6 F H 99.2 F Pulse Rate 139 H 112 H 97 Respiratory 18 18 18 Rate Blood Pressure 81/60 78/65 75/49 O2 Sat by Pulse 94 L 96 97 Oximetry 08/08/18 08/08/18 17:45 18:00 Temperature Pulse Rate 98 92 Respiratory 18 18 Rate Blood Pressure 74/52 81/54 O2 Sat by Pulse 96 94 L Oximetry Procedures - Sepsis Sepsis Focused Exam #1 Time Sepsis Criteria Met: 17:15 Sepsis Focused Exam Date: 08/08/18 Sepsis Focused Exam Time: 17:40 Sepsis Focused Exam Complete: Yes Vital Signs & RN Notes Reviewed: Yes Capillary Refill: < 2 Seconds: Fingers Peripheral Pulses: Weak: Radial (R) Skin Color: Normal for Patient Respiratory Exam: normal lung sounds Cardiovascular Exam: regular rate Medical Decision Making - Medical Decision Making EKG shows a sinus tachycardia with occasional PVC at 114 bpm DE interval is 134 QRS is 88 QT interval 320 QTC is 441. Patient occasionally had a PVC. Patient's ideal body weight is 64 kg. Chest x-ray shows left hilar mass. [facility]. I spoke Dr. Cagle agreed to admit the patient admitted the patient wrote admitting orders. Patient received a third liter of fluid because the patient's blood pressure remained low. I spoke with the veneer drier feeder he agreed to admit the patient admitted patient wrote admitting orders. - Lab Data Result diagrams: 08/08/18 15:27 08/08/18 15:27 Lab Results 08/08/18 08/08/18 08/08/18 Range/Units 15:27 15:27 15:27 WBC 17.0 H (3.8-10.6) k/uL RBC 3.25 L (3.80-5.40) m/uL Hgb 9.7 L (11.4-16.0) gm/dL Hct 31.1 L (34.0-46.0) % MCV 95.6 (80.0-100.0) fL MCH 30.0 (25.0-35.0) pg MCHC 31.4 (31.0-37.0) g/dL RDW 16.4 H (11.5-15.5) % Plt Count 175 (150-450) k/uL Neutrophils % 95 % Lymphocytes % 1 % Monocytes % 3 % Eosinophils % 0 % Basophils % 0 % Neutrophils # 16.2 H (1.3-7.7) k/uL Lymphocytes # 0.1 L (1.0-4.8) k/uL Monocytes # 0.6 (0-1.0) k/uL Eosinophils # 0.1 (0-0.7) k/uL Basophils # 0.1 (0-0.2) k/uL Hypochromasia Slight Anisocytosis Slight PT (9.0-12.0) sec INR (<1.2) APTT (22.0-30.0) sec Sodium 134 L (137-145) mmol/L Potassium 3.2 L (3.5-5.1) mmol/L Chloride 99 (98-107) mmol/L Carbon Dioxide 24 (22-30) mmol/L Anion Gap 11 mmol/L BUN 12 (7-17) mg/dL Creatinine 1.23 H (0.52-1.04) mg/dL Est GFR (CKD-EPI)AfAm 56 (>60 ml/min/1.73 sqM) Est GFR (CKD-EPI)NonAf 48 (>60 ml/min/1.73 sqM) Glucose 148 H (74-99) mg/dL Plasma Lactic Acid Bassam (0.7-2.0) mmol/L Calcium 8.0 L (8.4-10.2) mg/dL Total Bilirubin 0.5 (0.2-1.3) mg/dL AST 22 (14-36) U/L ALT 17 (9-52) U/L Alkaline Phosphatase 129 H (38-126) U/L Total Protein 5.5 L (6.3-8.2) g/dL Albumin 2.2 L (3.5-5.0) g/dL Urine Color Urine Appearance (Clear) Urine RBC (0-5) /hpf Urine WBC (0-5) /hpf Urine Mucus (None) /hpf Influenza Type A RNA Not Detected (Not Detectd) Influenza Type B (PCR) Not Detected (Not Detectd) 08/08/18 08/08/18 08/08/18 Range/Units 15:27 15:27 16:50 WBC (3.8-10.6) k/uL RBC (3.80-5.40) m/uL Hgb (11.4-16.0) gm/dL Hct (34.0-46.0) % MCV (80.0-100.0) fL MCH (25.0-35.0) pg MCHC (31.0-37.0) g/dL RDW (11.5-15.5) % Plt Count (150-450) k/uL Neutrophils % % Lymphocytes % % Monocytes % % Eosinophils % % Basophils % % Neutrophils # (1.3-7.7) k/uL Lymphocytes # (1.0-4.8) k/uL Monocytes # (0-1.0) k/uL Eosinophils # (0-0.7) k/uL Basophils # (0-0.2) k/uL Hypochromasia Anisocytosis PT 13.5 H (9.0-12.0) sec INR 1.3 H (<1.2) APTT 29.4 (22.0-30.0) sec Sodium (137-145) mmol/L Potassium (3.5-5.1) mmol/L Chloride (98-107) mmol/L Carbon Dioxide (22-30) mmol/L Anion Gap mmol/L BUN (7-17) mg/dL Creatinine (0.52-1.04) mg/dL Est GFR (CKD-EPI)AfAm (>60 ml/min/1.73 sqM) Est GFR (CKD-EPI)NonAf (>60 ml/min/1.73 sqM) Glucose (74-99) mg/dL Plasma Lactic Acid Bassam 5.5 H* (0.7-2.0) mmol/L Calcium (8.4-10.2) mg/dL Total Bilirubin (0.2-1.3) mg/dL AST (14-36) U/L ALT (9-52) U/L Alkaline Phosphatase (38-126) U/L Total Protein (6.3-8.2) g/dL Albumin (3.5-5.0) g/dL Urine Color Dark Red Urine Appearance Bloody H (Clear) Urine RBC >182 H (0-5) /hpf Urine WBC >182 H (0-5) /hpf Urine Mucus Occasional H (None) /hpf Influenza Type A RNA (Not Detectd) Influenza Type B (PCR) (Not Detectd) Critical Care Time Critical Care Time: Yes Total Critical Care Time: 35 Disposition Clinical Impression: Septic shock, Urinary tract infection, Lung mass Disposition: ADMITTED IP TO THIS HOSP Referrals: Howard Geiger DO [Primary Care Provider] - 1-2 days Time of Disposition: 17:41
[2018-08-08] MEDS: SODIUM CHLORIDE 0.9% 500 ML 500 ML IV SCH ×2 (15:23→15:53)
[2018-08-08 15:51] LABS: Albumin 2.2 g/dL (3.5-5.0); Potassium 3.2 mmol/L (3.5-5.1); Total Bilirubin 0.5 mg/dL (0.2-1.3); Total Protein 5.5 g/dL (6.3-8.2)
[2018-08-08 15:52] LABS: INR 1.3 (<1.2); Partial Thromboplastin Time 29.4 sec (22.0-30.0); Prothrombin Time 13.5 sec (9.0-12.0)
[2018-08-08 15:53] LABS: Anisocytosis Slight; Basophils # (A) 0.1 k/uL (0-0.2); Basophils % (A) 0 %; Eosinophils # (A) 0.1 k/uL (0-0.7); Eosinophils % (A) 0 %; HCT 31.1 % (34.0-46.0); HGB 9.7 gm/dL (11.4-16.0); Hypochromasia Slight; Lymphocytes # (A) 0.1 k/uL (1.0-4.8); Lymphocytes % (A) 1 %; MCHC 31.4 g/dL (31.0-37.0); MCV 95.6 fL (80.0-100.0); Monocytes # (A) 0.6 k/uL (0-1.0); Monocytes % (A) 3 %; Neutrophils # (A) 16.2 k/uL (1.3-7.7); Neutrophils % (A) 95 %; Platelet Count 175 k/uL (150-450); RBC 3.25 m/uL (3.80-5.40); RDW 16.4 % (11.5-15.5)
[2018-08-08] MEDS ORDERED: SODIUM CHLORIDE 0.9% 2,000 ML IV ONE (16:25)
[2018-08-08] MEDS ORDERED: cefTRIAXone IN SWFI 1,000 MG/10 ML SYRINGE IVP STA (16:25)
[2018-08-08 17:26] LABS: Mucus,Urine Occasional /hpf; RBC,Urine >182 /hpf (0-5); WBC,Urine >182 /hpf (0-5)
[2018-08-08 17:28] LABS: Appearance,Urine Bloody (Clear); Color,Urine Dark Red
--- NOTE | 2018-08-08 17:29 | XR ---
EXAMINATION TYPE: XR chest 2V DATE OF EXAM: 08/08/2018 COMPARISON: None HISTORY: Fever TECHNIQUE: Frontal and lateral views of the chest are obtained. FINDINGS: There is a Port-A-Cath in the right pectoral region, distal tip the catheter is overlying the superior vena cava. No pneumothorax. Left hilar mass is present. Minimal increased density at the posterior costophrenic angle. Heart size is normal. IMPRESSION: Left hilar mass
[2018-08-08] MEDS ORDERED: NOREPINEPHRINE 4 MG in SODIUM CHLORIDE 0.9% 250 ML IV ONE (18:05)
[2018-08-08] MEDS ORDERED: NALOXONE 0.4 MG/ML 1 ML VIAL IV PRN (18:39)
[2018-08-08 19:22] LABS: Glucose,Whole Blood 120 mg/dL (75-99)
[2018-08-08] MEDS ORDERED: Potassium Replacement Protocol 1 EACH MISC MISCELLANE PRN (20:03)
[2018-08-08] MEDS ORDERED: ONDANSETRON 4 MG TAB PO PRN (21:19)
[2018-08-08] MEDS: NOREPINEPHRINE 4 MG in SODIUM CHLORIDE 0.9% 250 ML IV SCH (21:57)
[2018-08-08] MEDS: SODIUM CHLORIDE 0.9% 1,000 ML IV SCH (21:57)
[2018-08-08] MEDS: POTASSIUM CHLORIDE ER 20 MEQ TAB.ER PO SCH ×2 (21:59→23:12)
[2018-08-08] MEDS: GABAPENTIN 300 MG CAP PO SCH (21:59)
[2018-08-08] MEDS: OXYBUTYNIN CHLORIDE 5 MG TAB PO SCH (22:00)
[2018-08-08] MEDS: MELATONIN 5 MG TABLET PO SCH (22:00)
[2018-08-09] MEDS: NOREPINEPHRINE 4 MG in SODIUM CHLORIDE 0.9% 250 ML IV SCH ×5 (00:57→23:16)
[2018-08-09] MEDS: SODIUM CHLORIDE 0.9% 1,000 ML IV SCH ×2 (05:16→13:53)
[2018-08-09 06:12] LABS: Calcium 7.1 mg/dL (8.4-10.2); Magnesium 1.2 mg/dL (1.6-2.3); Phosphorus 3.2 mg/dL (2.5-4.5)
[2018-08-09 06:14] LABS: Anisocytosis Slight; Basophils # (A) 0.1 k/uL (0-0.2); Basophils % (A) 0 %; Eosinophils % (A) 0 %; HCT 31.4 % (34.0-46.0); HGB 9.8 gm/dL (11.4-16.0); Hypochromasia Marked; Lymphocytes # (A) 0.2 k/uL (1.0-4.8); Lymphocytes % (A) 1 %; MCH 30.5 pg (25.0-35.0); MCHC 31.3 g/dL (31.0-37.0); MCV 97.5 fL (80.0-100.0); Macrocytosis Slight; Mean Platelet Volume 6.6; Monocytes # (A) 0.6 k/uL (0-1.0); Monocytes % (A) 4 %; Neutrophils % (A) 94 %; Platelet Count 133 k/uL (150-450); RBC 3.22 m/uL (3.80-5.40); RDW 16.5 % (11.5-15.5); WBC 15.9 k/uL (3.8-10.6)
[2018-08-09] MEDS ORDERED: Magnesium Replacement Protocol 1 EACH MISC MISCELLANE PRN (06:59)
[2018-08-09] MEDS: MAGNESIUM SULFATE-D5W PMX 1 GM in DEXTROSE/WATER 1 100ML.BAG IVPB SCH ×3 (07:25→10:08)
[2018-08-09] MEDS: SENNOSIDES 8.6 MG TAB PO SCH ×2 (09:00→21:25)
[2018-08-09] MEDS ORDERED: ACETAMINOPHEN TAB 325 MG TAB PO PRN (09:29)
[2018-08-09] MEDS ORDERED: ONDANSETRON 4 MG/2 ML VIAL IM STA (09:30)
--- NOTE | 2018-08-09 09:51 | XR ---
EXAMINATION TYPE: XR chest 1V DATE OF EXAM: 08/09/2018 COMPARISON: Prior chest x-ray 08/08/2018 HISTORY: Lung carcinoma, shortness of breath TECHNIQUE: Single frontal view of the chest is obtained. FINDINGS: Findings are similar to prior exam. IMPRESSION: Findings compatible with patient's history of lung carcinoma.
[2018-08-09 10:02] LABS: Glucose,Whole Blood 114 mg/dL (75-99)
--- NOTE | 2018-08-09 10:02 | P.CNPUL ---
History of Present Illness Consult date: 08/09/18 Requesting physician: Sarthak Cagle Chief complaint: Fever, hematuria, pelvic pain History of present illness: This is a 57-year-old white female patient who recently became established with Dr. Lyssa Geiger for primary care services, recently moved to [place] to live with her daughter from [place], [place]. Patient has a history of mucinous adenocarcinoma of the bladder. She was diagnosed in March 2017, and according to the patient initially the tumor was localized to the bladder, and measuring around 3 mm, no evidence of metastasis on initial PET scan. Patient had chemotherapy and radiation. Her chemotherapy was completed in [place], [place]. Patient follows with urologist, Dr. Franco and medical oncologist, Dr. Nichole from [facility] [place] [facility]. She had a r ecent PET scan done, and there was a mention of a lung mass or nodule, and is unsure of the details. She states despite the treatments the cancer had spread, and most recently she was considering palliative care. Patient had nephrostomy tube bilaterally inserted in April 2018 by interventional radiology in [place], for ureteral obstruction. In the last couple of days patient has been having pelvic discomfort, hematuria, yesterday her daughter noticed patient being febrile with a temp of 10 4F and patient was brought into the hospital for evaluation. Other history includes sleep apnea on CPAP therapy, DVT, hypertension. Patient is a former smoker, quit 15 years ago, prior to that smoked a pack a day for 15 years. Chest x-ray showed left hilar mass. She was recently hospitalized at this hospital in July for urinary tract infectionand cystitis. Urine culture and blood cultures from that admission showed no growth. Patient was treated with Levaquin, she had improved, and she was supposed to have her bilateral nephrostomy tubes replaced on 08/02/2018. Lab work showed leukocytosis, with the only blood cell count of 17, hemoglobin of 9.7, INR of 1.3, sodium of 134, potassium is 3.2, BUN of 12 and creatinine 1.23, digestive of 5.5, ALT and AST were within normal limits, alkaline phosphatase was 129, urine quite bloody, and the urinalysis showed red blood cells and greater than 182, and white blood cells and greater than 182. Influenza screen was negative, patient was fluid resuscitated in the emergency department, she was hypotensive, she received a total of 3 L of normal saline, she is currently on 0.9 normal saline at a rate of 125 ML per hour, on the levo fed at 50 mics per minutes. She is to be febrile, but she is awake, alert, oriented 3, cultures, and urine culture was sent and results are pending at this time. Antibiotic coverage includes Rocephin. There is blood-tinged cloudy moody-colored urine from the nephrostomy tubes. Patient denies any pulmonary complaints, does still have some pelvic tenderness, and hematuria. Review of Systems All systems: negative Constitutional: Denies chills, Denies fever Eyes: denies blurred vision, denies pain Ears, nose, mouth and throat: Denies headache, Denies sore throat Cardiovascular: Denies chest pain, Denies shortness of breath Respiratory: Denies cough Gastrointestinal: Denies abdominal pain, Denies diarrhea, Denies nausea, Denies vomiting Genitourinary: Reports dysuria, Reports hematuria Musculoskeletal: Denies myalgias Integumentary: Denies pruritus, Denies rash Neurological: Denies numbness, Denies weakness Psychiatric: Denies anxiety, Denies depression Endocrine: Denies fatigue, Denies weight change Past Medical History Past Medical History: Cancer, Deep Vein Thrombosis (DVT), Sleep Apnea/CPAP/BIPAP Additional Past Medical History / Comment(s): stage IV bladder cancer- completed chemo september 2017 and completed radiation - stated had high blood pressure after chemo took meds for it untill apr 2018. has cpap machine History of Any Multi-Drug Resistant Organisms: None Reported Past Surgical History: Bladder Surgery, Tonsillectomy Additional Past Surgical History / Comment(s): bridgette nephrostomy tubes(apr 2018) bladder sx-"scrapping" Past Anesthesia/Blood Transfusion Reactions: Motion Sickness Additional Past Anesthesia/Blood Transfusion Reaction / Comment(s): clausterphobia. has had blood transfusions -no reaction to it Past Psychological History: No Psychological Hx Reported Additional Psychological History / Comment(s): recently moved back here from [place]. living with her daughter. Smoking Status: Former smoker Past Alcohol Use History: None Reported Additional Past Alcohol Use History / Comment(s): started smoking at age 23 and quit 2004 smoked 1 ppd Past Drug Use History: Marijuana Additional Drug Use History / Comment(s): occ use of marijuana.last time used was 5 days ago. - Past Family History Mother Additional Family Medical History / Comment(s): hypotension Father Family Medical History: Cancer Additional Family Medical History / Comment(s): bladder cancer Medications and Allergies Home Medications Medication Instructions Recorded Confirmed Type Ferrous Sulfate [Iron (65 MG 325 mg PO DAILY@1000 07/28/18 08/08/18 History Elemental)] Gabapentin [Neurontin] 300 mg PO BID@1000,2200 07/28/18 08/08/18 History Melatonin 10 mg PO HS@0 07/28/18 08/08/18 History Oxybutynin Chloride [Ditropan] 5 mg PO BID@1000,2200 07/28/18 08/08/18 History Sennosides [Senna] 17.2 mg PO BID 07/28/18 08/08/18 History fentaNYL 50MCG/HR PATCH [Duragesic 1 patch TRANSDERM Q72H #5 patch 07/29/18 08/08/18 Rx 50MCG/HR] oxyCODONE HCL [OxyIR] 5 mg PO Q3H PRN 07/30/18 08/08/18 History Apixaban [Eliquis] See Taper PO BID 08/08/18 08/08/18 History Ondansetron [Zofran] 4 mg PO Q12HR PRN 08/08/18 08/08/18 History Allergies Allergy/AdvReac Type Severity Reaction Status Date / Time No Known Allergies Allergy Verified 08/08/18 15:02 Physical Exam Vitals: Vital Signs Temp Pulse Pulse Resp BP BP Pulse Ox 08/09/18 07:15 95 11 L 93/55 96 08/09/18 07:00 97 19 91/56 94 L 08/09/18 06:45 97 19 91/57 95 08/09/18 06:30 96 19 79/59 94 L 08/09/18 06:15 99 23 95/58 95 08/09/18 06:00 98 20 93/62 94 L 08/09/18 05:45 98 16 92/57 94 L 08/09/18 05:30 98 17 95/57 94 L 08/09/18 05:15 96 18 97/63 94 L 08/09/18 05:00 96 16 97/61 97 08/09/18 04:45 96 12 99/75 97 08/09/18 04:30 101 H 31 H 83/56 90 L 08/09/18 04:15 92 17 97/61 92 L 08/09/18 04:00 98.7 F 93 17 93/58 93 L 08/09/18 03:45 93 13 99/65 93 L 08/09/18 03:30 94 12 105/62 92 L 08/09/18 03:15 94 15 110/69 92 L 08/09/18 03:00 98 12 102/64 93 L 08/09/18 02:45 112 H 20 133/109 95 08/09/18 02:30 116 H 21 86/66 96 08/09/18 02:15 103 H 17 98/59 94 L 08/09/18 02:00 84 13 86/55 95 08/09/18 01:45 76 13 87/57 96 08/09/18 01:30 78 13 103/65 96 08/09/18 01:15 81 15 130/92 96 08/09/18 01:00 97.7 F 98 15 137/77 100 08/09/18 00:45 74 13 120/72 99 08/09/18 00:30 77 15 115/68 95 08/09/18 00:24 76 13 115/68 96 08/09/18 00:15 77 13 119/69 96 08/09/18 00:00 97.2 F L 66 11 L 113/82 96 08/08/18 23:45 67 8 L 114/72 95 08/08/18 23:30 66 11 L 119/74 96 08/08/18 23:15 76 14 96/65 95 08/08/18 23:00 76 23 123/74 95 08/08/18 22:45 79 13 114/76 95 08/08/18 22:30 79 18 127/77 94 L 08/08/18 22:15 74 13 112/62 94 L 08/08/18 22:00 75 16 106/71 95 08/08/18 21:45 71 15 111/65 95 08/08/18 21:30 75 13 80/50 95 08/08/18 21:15 80 12 104/66 95 08/08/18 21:00 80 13 91/62 96 08/08/18 20:45 89 17 101/63 96 08/08/18 20:30 85 15 102/60 94 L 08/08/18 20:15 87 15 96/60 95 08/08/18 20:00 86 15 90/68 96 08/08/18 19:30 98.4 F 85 20 94/63 95 08/08/18 19:22 84 17 95 08/08/18 19:07 98.4 F 81 10 L 91/62 95 08/08/18 19:00 92 18 79/51 96 08/08/18 18:55 92 18 77/49 96 08/08/18 18:45 92 18 74/49 08/08/18 18:30 92 18 68/51 94 L 08/08/18 18:00 92 18 81/54 94 L 08/08/18 17:45 98 18 74/52 96 08/08/18 17:00 97 18 75/49 97 08/08/18 16:50 99.2 F 112 H 18 78/65 96 08/08/18 14:27 102.6 F H 139 H 18 81/60 94 L Intake and Output 08/08/18 08/09/18 08/09/18 22:59 06:59 14:59 Intake Total 194.689 2447.004 125 Output Total 200 575 50 Balance 460.036 805.004 75 Intake: IV 375 1000 125 Sodium Chloride 0.9% 1, 375 1000 125 000 ml @ 125 mls/hr IV . Q8H COUNTS INCLUDE 234 BEDS AT THE [facility] Rx#:[id number] Intake, IV Titration 285.036 380.004 Amount Norepinephrine 4 mg In 193.746 Sodium Chloride 0.9% 250 ml @ 0.05 MCG/KG/MIN 18. 405 mls/hr IV .[id number] [facility] Rx#:[id number] Norepinephrine 4 mg In 91.29 380.004 Sodium Chloride 0.9% 250 ml @ 0.05 MCG/KG/MIN 18. 405 mls/hr IV .[id number] COUNTS INCLUDE 234 BEDS AT THE [facility] Rx#:[id number] Output: Urine 200 575 50 Other: Weight 97 kg GENERAL EXAM: Alert, pleasant, 57-year-old white female, 2 L per nasal cannula comfortable in no apparent distress. HEAD: Normocephalic/atraumatic. EYES: Normal reaction of pupils, equal size. Conjunctiva pink, sclera white. NOSE: Clear with pink turbinates. THROAT: No erythema or exudates. NECK: No masses, no JVD, no thyroid enlargement, no adenopathy. CHEST: No chest wall deformity. Symmetrical expansion. LUNGS: Equal air entry with no crackles, wheeze, rhonchi or dullness. CVS: Regular rate and rhythm, normal S1 and S2, no gallops, no murmurs, no rubs ABDOMEN: Soft, nontender. No hepatosplenomegaly, normal bowel sounds, no guarding or rigidity. Bilateral nephrostomy tubes present, and is moody colored blood-tinged colored urine and nephrostomy bags EXTREMITIES: No clubbing, no edema, no cyanosis, 2+ pulses and upper and lower extremities. MUSCULOSKELETAL: Muscle strength and tone normal. SPINE: No scoliosis or deformity SKIN: No rashes CENTRAL NERVOUS SYSTEM: Alert and oriented -3. No focal deficits, tone is normal in all 4 extremities. PSYCHIATRIC: Alert and oriented -3. Appropriate affect. Intact judgment and insight. Results - Laboratory Findings CBC and BMP: 08/09/18 05:30 08/09/18 05:30 PT/INR, D-dimer PT 13.5 sec (9.0-12.0) H 08/08/18 15:27 INR 1.3 (<1.2) H 08/08/18 15:27 Abnormal lab findings: Abnormal Labs 08/08/18 08/08/18 08/08/18 15:27 15:27 15:27 WBC 17.0 H RBC 3.25 L Hgb 9.7 L Hct 31.1 L RDW 16.4 H Plt Count Neutrophils # 16.2 H Lymphocytes # 0.1 L PT INR Sodium 134 L Potassium 3.2 L Chloride Carbon Dioxide Creatinine 1.23 H Glucose 148 H POC Glucose (mg/dL) Plasma Lactic Acid Bassam 5.5 H* Calcium 8.0 L Magnesium Alkaline Phosphatase 129 H Total Protein 5.5 L Albumin 2.2 L Urine Appearance Urine RBC Urine WBC Urine Mucus 08/08/18 08/08/18 08/08/18 15:27 16:50 19:18 WBC RBC Hgb Hct RDW Plt Count Neutrophils # Lymphocytes # PT 13.5 H INR 1.3 H Sodium Potassium Chloride Carbon Dioxide Creatinine Glucose POC Glucose (mg/dL) 120 H Plasma Lactic Acid Bassam Calcium Magnesium Alkaline Phosphatase Total Protein Albumin Urine Appearance Bloody H Urine RBC >182 H Urine WBC >182 H Urine Mucus Occasional H 08/08/18 08/09/18 08/09/18 19:28 05:30 05:30 WBC 15.9 H RBC 3.22 L Hgb 9.8 L Hct 31.4 L RDW 16.5 H Plt Count 133 L Neutrophils # 15.0 H Lymphocytes # 0.2 L PT INR Sodium 136 L Potassium Chloride 109 H Carbon Dioxide 18 L Creatinine 1.13 H Glucose 121 H POC Glucose (mg/dL) Plasma Lactic Acid Bassam 2.4 H* Calcium 7.1 L Magnesium 1.2 L Alkaline Phosphatase Total Protein Albumin Urine Appearance Urine RBC Urine WBC Urine Mucus - Diagnostic Findings Chest x-ray: report reviewed, image reviewed Assessment and Plan Plan: Assessment: #1. Septic shock related to acute urinary tract infection, urinalysis showed hematuria, red blood cells and white blood cells #2. Anion gap metabolic acidosis, related to lactic acidosis, due to sepsis #3. 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 Patient had a recent PET scan done in [place], which showed metastasis to the lung. Most recently patient had a abdomen/pelvis CT which showed irregular hypodense area within the superior right medial lobe of the liver, biliary related to neoplasm. #4. Left hilar mass, possibly related to metastasis #5. Recent hospitalization for acute urinary tract infection and cystitis, treated with Levaquin, cultures were negative on that admission #6. Chronic anemia #7. Hypokalemia #8. Acute kidney injury related to hypotension sepsis #9. Former smoker, carries [id number] smoking history, quit 15 years ago #10. Hypertension #11. History of DVTs on Eliquis Plan: Current antibiotic coverage, cultures are pending, patient will receive another 2 L of IV fluid boluses, lactic acid is trending down, but patient remains febrile. No altered mentation. We will ask urology service and medical oncology to see the patient, will obtain records from Dr. Geiger's and her treating medical oncologist from [place]. OBtain random serum cortisol, obtain TSH. Resume patient's anticoagulation. She was seen and evaluated by Dr. Steen. I performed a history & physical examination of the patient and discussed their management with my nurse practitioner, Colette Villarreal. I reviewed the nurse practitioner's note and agree with the documented findings and plan of care. Lung sounds are positive for clear breath sounds. The findings and the impression was discussed with the patient. I attest to the documentation by the nurse practitioner. Time with Patient: Greater than 30
[2018-08-09] MEDS: OXYBUTYNIN CHLORIDE 5 MG TAB PO SCH ×2 (10:12→21:25)
[2018-08-09] MEDS: FERROUS SULFATE 325 MG TAB PO SCH (10:12)
[2018-08-09] MEDS: GABAPENTIN 300 MG CAP PO SCH ×2 (10:12→21:25)
[2018-08-09] MEDS ORDERED: SODIUM CHLORIDE 0.9% 2,000 ML IV ONE (10:35)
--- NOTE | 2018-08-09 16:42 | P.GSCN ---
History of Present Illness Consult date: 08/09/18 Reason for Consult: Bladder cancer History of present illness: The patient is a 57-year-old female admitted through the emergency room yesterday for evaluation of sepsis secondary to a urinary tract infection. The patient had felt tired on 08/07 and became more lethargic on 08/08. She developed fever and chills at home and came to the emergency room where she was noted to be hypotensive with a temperature of 102.6. White blood count was 17,000. Lactic acid was 2.4. The patient was started on Rocephin and given IV fluids. She has required levo fed to maintain her blood pressure and was transferred to the intensive care unit. She says she feels better overall although she did have a single episode of vomiting this morning which may have been related to a brief episode of SVT. She had a temperature of 101 this morning but has been afebrile since then. She complains of lower abdominal discomfort which has been present for several days. The patient's history is significant in regard to mucinous adenocarcinoma of the bladder which was diagnosed in 03/2017. She says she had a PET scan at that time that showed no evidence of metastatic disease. She was treated with chemotherapy initially and then received additional radiation therapy in 01/2018. She says she had a PET scan around that time that suggested lymph node metast asis and possible pulmonary metastasis. He developed ureteral obstruction and bilateral nephrostomy tubes were placed in 04/2018. The majority of the patient's treatment had been performed in [place] and the patient most recently moved to this area. She developed deep venous thrombosis involving the left leg and was treated at this hospital in late 07/2018 and has been started on liquids. Computed tomography scan of the abdomen and pelvis on 07/28 showed good position of the nephrostomy tubes. There was nonspecific thickening of the bladder and air present within the bladder. A voided urine at that time grew greater than 100,000 colonies of mixed organisms consistent with skin and genital contamination. The patient says that her nephrostomy tubes have been draining well since they were placed. She says she has intermittent passage of bloody fluid either from the urethra or vagina and this has been going on for several months. She has been treated with oxybutynin due to bladder spasms with some improvement. She denies any pneumaturia. She says her bowels have been moving normally. Review of Systems - Constitutional Reports chills, Reports fever, Reports lethargy - Respiratory Denies cough, Denies wheezing - Gastrointestinal Reports as per HPI - Genitourinary Genitourinary: Reports as per HPI Past Medical History Past Medical History: Cancer, Deep Vein Thrombosis (DVT), Sleep Apnea/CPAP/BIPAP Additional Past Medical History / Comment(s): stage IV bladder cancer- completed chemo september 2017 and completed radiation - stated had high blood pressure a fter chemo took meds for it untill apr 2018. has cpap machine History of Any Multi-Drug Resistant Organisms: None Reported Past Surgical History: Bladder Surgery, Tonsillectomy Additional Past Surgical History / Comment(s): bridgette nephrostomy tubes(apr 2018) TUR bladder tumor 03/2017 Past Anesthesia/Blood Transfusion Reactions: Motion Sickness Additional Past Anesthesia/Blood Transfusion Reaction / Comm: clausterphobia. has had blood transfusions -no reaction to it Past Psychological History: No Psychological Hx Reported Additional Psychological History / Comment(s): recently moved back here from [place]. living with her daughter. Smoking Status: Former smoker Past Alcohol Use History: None Reported Additional Past Alcohol Use History / Comment(s): started smoking at age 23 and quit 2004 smoked 1 ppd Past Drug Use History: Marijuana Additional Drug Use History / Comment(s): occ use of marijuana.last time used was 5 days ago. - Past Family History Mother Additional Family Medical History / Comment(s): hypotension Father Family Medical History: Cancer Additional Family Medical History / Comment(s): bladder cancer Medications and Allergies Home Medications Medication Instructions Recorded Confirmed Type Ferrous Sulfate [Iron (65 MG 325 mg PO DAILY@1000 07/28/18 08/08/18 History Elemental)] Gabapentin [Neurontin] 300 mg PO BID@1000,0 07/28/18 08/08/18 History Melatonin 10 mg PO HS@219907/28/18 08/08/18 History Oxybutynin Chloride [Ditropan] 5 mg PO BID@1000,219907/28/18 08/08/18 History Sennosides [Senna] 17.2 mg PO BID 07/28/18 08/08/18 History fentaNYL 50MCG/HR PATCH [Duragesic 1 patch TRANSDERM Q72H #5 patch 07/29/18 08/08/18 Rx 50MCG/HR] oxyCODONE HCL [OxyIR] 5 mg PO Q3H PRN 07/30/18 08/08/18 History Apixaban [Eliquis] See Taper PO BID 08/08/18 08/08/18 History Ondansetron [Zofran] 4 mg PO Q12HR PRN 08/08/18 08/08/18 History Allergies Allergy/AdvReac Type Severity Reaction Status Date / Time No Known Allergies Allergy Verified 08/08/18 15:02 Surgical - Exam Vital Signs Temp Pulse Resp BP Pulse Ox 102.6 F H 139 H 18 81/60 94 L 08/08/18 14:27 08/08/18 14:27 08/08/18 14:27 08/08/18 14:27 08/08/18 14:27 - General well developed, well nourished, no distress, chronically ill, obese - ENT no hearing loss - Neck no masses, no lymphadectomy - Respiratory normal respiratory effort - Abdomen Abdomen: tender (Suprapubic area), no organomegaly, no masses - Genitourinary normal external genitalia Results - Labs 08/09/18 05:30 08/09/18 05:30 Abnormal Lab Results - Last 24 Hours (Table) 08/08/18 08/08/18 08/08/18 Range/Units 16:50 19:18 19:28 WBC (3.8-10.6) k/uL RBC (3.80-5.40) m/uL Hgb (11.4-16.0) gm/dL Hct (34.0-46.0) % RDW (11.5-15.5) % Plt Count (150-450) k/uL Neutrophils # (1.3-7.7) k/uL Lymphocytes # (1.0-4.8) k/uL Sodium (137-145) mmol/L Chloride (98-107) mmol/L Carbon Dioxide (22-30) mmol/L Creatinine (0.52-1.04) mg/dL Glucose (74-99) mg/dL POC Glucose (mg/dL) 120 H (75-99) mg/dL Plasma Lactic Acid Bassam 2.4 H* (0.7-2.0) mmol/L Calcium (8.4-10.2) mg/dL Magnesium (1.6-2.3) mg/dL Urine Appearance Bloody H (Clear) Urine RBC >182 H (0-5) /hpf Urine WBC >182 H (0-5) /hpf Urine Mucus Occasional H (None) /hpf 08/09/18 08/09/18 08/09/18 Range/Units 05:30 05:30 09:59 WBC 15.9 H (3.8-10.6) k/uL RBC 3.22 L (3.80-5.40) m/uL Hgb 9.8 L (11.4-16.0) gm/dL Hct 31.4 L (34.0-46.0) % RDW 16.5 H (11.5-15.5) % Plt Count 133 L (150-450) k/uL Neutrophils # 15.0 H (1.3-7.7) k/uL Lymphocytes # 0.2 L (1.0-4.8) k/uL Sodium 136 L (137-145) mmol/L Chloride 109 H (98-107) mmol/L Carbon Dioxide 18 L (22-30) mmol/L Creatinine 1.13 H (0.52-1.04) mg/dL Glucose 121 H (74-99) mg/dL POC Glucose (mg/dL) 114 H (75-99) mg/dL Plasma Lactic Acid Bassam (0.7-2.0) mmol/L Calcium 7.1 L (8.4-10.2) mg/dL Magnesium 1.2 L (1.6-2.3) mg/dL Urine Appearance (Clear) Urine RBC (0-5) /hpf Urine WBC (0-5) /hpf Urine Mucus (None) /hpf Microbiology - Last 24 Hours (Table) 08/08/18 16:50 Urine Culture - Preliminary Urine,Ureter Diabetes panel 08/09/18 Range/Units 05:30 Sodium 136 L (137-145) mmol/L Potassium 4.0 (3.5-5.1) mmol/L Chloride 109 H (98-107) mmol/L Carbon Dioxide 18 L (22-30) mmol/L BUN 12 (7-17) mg/dL Creatinine 1.13 H (0.52-1.04) mg/dL Glucose 121 H (74-99) mg/dL Calcium 7.1 L (8.4-10.2) mg/dL Thyroid panel 08/09/18 Range/Units 05:30 TSH 1.890 (0.465-4.680) mIU/L Calcium panel 08/09/18 Range/Units 05:30 Calcium 7.1 L (8.4-10.2) mg/dL Phosphorus 3.2 (2.5-4.5) mg/dL Pituitary panel 08/09/18 08/09/18 Range/Units 05:30 05:30 Sodium 136 L (137-145) mmol/L Potassium 4.0 (3.5-5.1) mmol/L Chloride 109 H (98-107) mmol/L Carbon Dioxide 18 L (22-30) mmol/L BUN 12 (7-17) mg/dL Creatinine 1.13 H (0.52-1.04) mg/dL Glucose 121 H (74-99) mg/dL Calcium 7.1 L (8.4-10.2) mg/dL TSH 1.890 (0.465-4.680) mIU/L Adrenal panel 08/09/18 Range/Units 05:30 Sodium 136 L (137-145) mmol/L Potassium 4.0 (3.5-5.1) mmol/L Chloride 109 H (98-107) mmol/L Carbon Dioxide 18 L (22-30) mmol/L BUN 12 (7-17) mg/dL Creatinine 1.13 H (0.52-1.04) mg/dL Glucose 121 H (74-99) mg/dL Calcium 7.1 L (8.4-10.2) mg/dL - Imaging CT scan - abdomen: image reviewed CT scan - pelvis: image reviewed Assessment and Plan (1) Malignant neoplasm metastatic from bladder Narrative/Plan: The patient has metastatic mucinous adenocarcinoma the bladder which is a rare variant of bladder cancer. She says she's had metastasis to the lungs and to her lymph nodes despite previous radiation therapy and chemotherapy. It's unclear whether any other chemotherapy options are available to her. She de veloped ureteral obstruction presumably from either lymphadenopathy or obstruction at the level of the bladder which has been palliated with percutaneous nephrostomy catheters. The catheters were placed in April and should be changed sometime within the next few weeks. They are draining adequat nya at this time and so this is not urgent. The patient's fever and sepsis is presumably secondary to a urinary tract infection. It's unclear whether the infection involved the right or left kidney or the bladder. Unfortunately it's unclear whether cultures from all 3 areas were obtained prior to starting antibiotics. If the patient has a severe infection of the bladder it will be difficult to treat as there is only minimal urine draining from the kidneys to the bladder. Bladder scan should be obtained to ensure that the patient is not overdistended. The patient would prefer not to have a catheter in place but if she has a large post void residual it may be necessary. Current Visit: No Status: Acute Code(s): C67.9 - MALIGNANT NEOPLASM OF BLADDER, UNSPECIFIED SNOMED Code(s): 612834603
--- NOTE | 2018-08-09 17:21 | HP ---
HISTORY AND PHYSICAL DATE OF ADMISSION: 08/08/2018 DATE OF SERVICE: 08/09/2018 PRESENTING COMPLAINT: Fever, tired. HISTORY OF PRESENTING COMPLAINT: This is a very pleasant 57-year-old patient who is now following with Dr. Geiger. The patient just moved from [place] to live with her daughter, Dianna Mascorro. Patient had been diagnosed with bladder cancer down in [place] with stage IV metastatic disease. She did complete chemotherapy and radiation treatment, and she was told by the oncologist there that no further treatment would really benefit her, including any immunotherapy. Patient has moved into [place] now to be with her daughter. Patient's appetite has not been very good. She has lost about 100 pounds in the last 2 years. Patient was in the hospital on July 28, went home and then had a DVT of the left lower extremity, for which she was put on Eliquis. The patient has been tolerating Ensure and she was able to get to the bathroom and back. At home patient was noted to be rather lethargic and tired yesterday and was noted to have a temperature up to 102. She was brought down to the ER. The patient was found to be septic with low blood pressure. She was given fluid boluses, started on IV antibiotic, admitted to the ICU, and was started on Levophed drip. This morning patient did have an episode of SVT. She is eating small amounts, still requiring IV fluids and pressor support. REVIEW OF SYSTEMS: CONSTITUTIONAL: Weak, tired, rundown. HEENT: None. RESPIRATORY: None. CARDIOVASCULAR: None. GASTROINTESTINAL: None. GENITOURINARY: None. MUSCULOSKELETAL: Some swelling of the left leg. DERMATOLOGICAL: None. HEMATOLOGICAL: None. LYMPHATICS: None. PSYCHIATRY: None. NEUROLOGICAL: None. PAST MEDICAL HISTORY: 1. Bladder cancer, metastatic, stage IV. 2. Obstructive sleep apnea. 3. Left leg DVT. PAST SURGICAL HISTORY: 1. Bladder surgery. 2. Tonsillectomy. 3. Bilateral nephrostomy tubes placed in April of last year. PSYCH HISTORY: Claustrophobia. SOCIAL HISTORY: The patient does marijuana occasionally. Smoked a pack a day for 20 years; stopped in 2013. Patient is living with her daughter here. Patient was employed. FAMILY HISTORY: Cancer, hypothyroidism. HOME MEDICATIONS: 1. Oxycodone 5 mg q.3 p.r.n. 2. Fentanyl 50 mcg patch every 72 hours. 3. Senna 17.2 mg b.i.d. 4. Ditropan 5 mg b.i.d. 5. Zofran 4 mg q.12 p.r.n. 6. Melatonin 10 mg at bedtime. 7. Neurontin 300 mg b.i.d. 8. Iron 325 p.o. daily. 9. Eliquis. ALLERGIES: NONE. PHYSICAL EXAMINATION: VITAL SIGNS ON PRESENTATION: Temperature 102.6, pulse 139, respiration 18, blood pressure 81/60, pulse ox 94% on room air. GENERAL APPEARANCE: Well built; BMI 34.5. Lying in bed, tired-appearing. EYES: Pupils equal. Conjunctivae slightly pale. HEENT: External appearance of nose and ears normal. Oral cavity a bit dry. NECK: JVD not raised. Mass not palpable. RESPIRATORY: Effort normal. LUNGS: Fair air entry. CARDIOVASCULAR: First and second sounds normal. Minimal edema. ABDOMEN: Lower abdominal tenderness. No guarding or rigidity. Liver and spleen not palpable. LYMPHATIC: No lymph node palpable in neck or axillae. PSYCHIATRY: Alert and oriented x3. Mood and affect slightly low-appearing. NEUROLOGICAL: Pupils equal. Cranial nerves grossly intact. Power and sensation grossly intact. INVESTIGATIONS: Blood work on presentation showed white count 17, hemoglobin 9.7, potassium 3.2, BUN 12, creatinine 1.23. Lactic acid 5.5, albumin 2.2. Influenza A and B negative. EKG tracing, personally reviewed by me, shows a demand pacemaker. Chest x-ray film, personally reviewed by me, showed some prominence of pulmonary artery and a left hilar mass. ASSESSMENT: 1. Acute severe urinary tract infection from cystitis causing septic shock, POA, in the setting of bladder cancer. 2. Metastatic bladder cancer, stage IV, status post chemo and radiation treatment. Not felt to be a candidate for any further benefit from any treatment. 3. Obstructive sleep apnea. Uses CPAP machine. 4. Obesity; body mass index 34.5. 5. Medical asthenia from underlying malignancy. 6. Hypoalbuminemia from mild protein-calorie malnutrition from decreased oral intake. 7. Acute left leg deep venous thrombosis, for which patient is on Eliquis. 8. Normocytic anemia of malignancy. 9. Metabolic acidosis. Bicarb is 18. 10.Lactic acidosis from sepsis. 11.Hypomagnesemia. PLAN: Patient's home medications are resumed. Patient is on IV ceftriaxone, IV fluids. She did have a run of SVT. Blood pressure is being watched closely. She is getting IV fluids. Care was discussed with the patient and family at the bedside. ADVANCED CARE PLANNING: The patient had been DNR, but the patient is now doubting that. I had a lengthy talk with the patient, and patient's brother and sister were present. Patient's clinical condition was discussed in entirety and in the bigger scheme of things. After dwelling upon it, patient has decided to now again become DO NOT RESUSCITATE. That is, NO CODE STATUS. More than 35 minutes was spent on this aspect of the case. DEREK / BRUNON: [id number] /
[2018-08-09] MEDS: MAGNESIUM OXIDE 400 MG TAB PO SCH ×2 (18:23→21:25)
[2018-08-09] MEDS: SODIUM BICARBONATE TAB 650 MG TAB PO SCH ×2 (18:23→21:30)
[2018-08-09] MEDS: LACTATED RINGERS 1,000 ML IV SCH (18:27)
[2018-08-09] MEDS: MELATONIN 5 MG TABLET PO SCH (21:25)
[2018-08-09] MEDS: APIXABAN 5 MG TAB PO SCH (21:25)
--- NOTE | 2018-08-09 21:35 | P.CONS ---
History of Present Illness - Reason for Consult Consult date: 08/09/18 Bladder Cancer Requesting physician: Colette Villrareal - Chief Complaint Fever - History of Present Illness Ms. Huizar is a 57-year-old who recently moved to [place] from [place] to live with her daughter. She was apparently diagnosed in [place] in March 2017 with bladder cancer (Mucinous adenocarcinoma). Primary Oncologst was Dr. Nichole from [facility] in [place], although per the record she underwent chemo and radiation therapy in [facility]. We will obtain all the records for accuracy of history, diagnosis, and prior treatments. Medical history per MR states she had recent nephrostomy tube placement for ureteral obstruction, in April 2018. She presented to [facility] with fever, daughter states T-Max at Home was 104F. She apparently had a recent PET scan and this showed metastatic disease, the patient stated she discussed this with her primary oncologist in [place] and asked if chemotherapy or immune therapy could "fix" it, she states since it cant be fixed she decided to sign on with hospice care, although they would not assist in maintaining her nephrostomy tubes therefore she signed with palliative care for the interim. She was planning on having her nephrostomy tube exchanged per recommendations although this had to be canceled because she not informed to stop her eliquis. She marcelo a known history of DVT and states been on Eliquis for this, cannot remember when it was started. She states preceeding her admission to [facility] she has been having increased discomfort in her lower abdomen, pelvis, and hematuria (intermittently). Since admission she states she is feeling better, was started on Antibiotics and has been afebrile since yesterday. She is questioning what options Medical Oncology has to offer and if she decided to proceed with treatment what would be our overall goals? For this reason we will request her prior records from [place] medical oncologist as well as, MD Palacio. Review of Systems A 14 point review of systems assessed and completed and all negative except HPI. Past Medical History Past Medical History: Cancer, Deep Vein Thrombosis (DVT), Sleep Apnea/CPAP/BIPAP Additional Past Medical History / Comment(s): stage IV bladder cancer- completed chemo september 2017 and completed radiation - stated had high blood pressure after chemo took meds for it untill apr 2018. has cpap machine History of Any Multi-Drug Resistant Organisms: None Reported Past Surgical History: Bladder Surgery, Tonsillectomy Additional Past Surgical History / Comment(s): bridgette nephrostomy tubes(apr 2018) bladder sx-"scrapping" Past Anesthesia/Blood Transfusion Reactions: Motion Sickness Additional Past Anesthesia/Blood Transfusion Reaction / Comm: clausterphobia. has had blood transfusions -no reaction to it Past Psychological History: No Psychological Hx Reported Additional Psychological History / Comment(s): recently moved back here from [facility]. living with her daughter. Smoking Status: Former smoker Past Alcohol Use History: None Reported Additional Past Alcohol Use History / Comment(s): started smoking at age 23 and quit 2003 smoked 1 ppd Past Drug Use History: Marijuana Additional Drug Use History / Comment(s): occ use of marijuana.last time used was 5 days ago. - Past Family History Mother Additional Family Medical History / Comment(s): hypotension Father Family Medical History: Cancer Additional Family Medical History / Comment(s): bladder cancer Medications and Allergies Home Medications Medication Instructions Recorded Confirmed Type Ferrous Sulfate [Iron (65 MG 325 mg PO DAILY@1000 07/28/18 08/08/18 History Elemental)] Gabapentin [Neurontin] 300 mg PO BID@1000,2200 07/28/18 08/08/18 History Melatonin 10 mg PO HS@2200 07/28/18 08/08/18 History Oxybutynin Chloride [Ditropan] 5 mg PO BID@1000,2200 07/28/18 08/08/18 History Sennosides [Senna] 17.2 mg PO BID 07/28/18 08/08/18 History fentaNYL 50MCG/HR PATCH [Duragesic 1 patch TRANSDERM Q72H #5 patch 07/29/18 08/08/18 Rx 50MCG/HR] oxyCODONE HCL [OxyIR] 5 mg PO Q3H PRN 07/30/18 08/08/18 History Apixaban [Eliquis] See Taper PO BID 08/08/18 08/08/18 History Ondansetron [Zofran] 4 mg PO Q12HR PRN 08/08/18 08/08/18 History Allergies Allergy/AdvReac Type Severity Reaction Status Date / Time No Known Allergies Allergy Verified 08/08/18 15:02 Physical Exam Vitals: Vital Signs Temp Pulse Pulse Resp BP BP Pulse Ox 08/09/18 07:15 95 11 L 93/55 96 08/09/18 07:00 97 19 91/56 94 L 08/09/18 06:45 97 19 91/57 95 08/09/18 06:30 96 19 79/59 94 L 08/09/18 06:15 99 23 95/58 95 08/09/18 06:00 98 20 93/62 94 L 08/09/18 05:45 98 16 92/57 94 L 08/09/18 05:30 98 17 95/57 94 L 08/09/18 05:15 96 18 97/63 94 L 08/09/18 05:00 96 16 97/61 97 08/09/18 04:45 96 12 99/75 97 08/09/18 04:30 101 H 31 H 83/56 90 L 08/09/18 04:15 92 17 97/61 92 L 08/09/18 04:00 98.7 F 93 17 93/58 93 L 08/09/18 03:45 93 13 99/65 93 L 08/09/18 03:30 94 12 105/62 92 L 08/09/18 03:15 94 15 110/69 92 L 08/09/18 03:00 98 12 102/64 93 L 08/09/18 02:45 112 H 20 133/109 95 08/09/18 02:30 116 H 21 86/66 96 08/09/18 02:15 103 H 17 98/59 94 L 08/09/18 02:00 84 13 86/55 95 08/09/18 01:45 76 13 87/57 96 08/09/18 01:30 78 13 103/65 96 08/09/18 01:15 81 15 130/92 96 08/09/18 01:00 97.7 F 98 15 137/77 100 08/09/18 00:45 74 13 120/72 99 08/09/18 00:30 77 15 115/68 95 08/09/18 00:24 76 13 115/68 96 08/09/18 00:15 77 13 119/69 96 08/09/18 00:00 97.2 F L 66 11 L 113/82 96 08/08/18 23:45 67 8 L 114/72 95 08/08/18 23:30 66 11 L 119/74 96 08/08/18 23:15 76 14 96/65 95 08/08/18 23:00 76 23 123/74 95 08/08/18 22:45 79 13 114/76 95 08/08/18 22:30 79 18 127/77 94 L 08/08/18 22:15 74 13 112/62 94 L 08/08/18 22:00 75 16 106/71 95 08/08/18 21:45 71 15 111/65 95 08/08/18 21:30 75 13 80/50 95 08/08/18 21:15 80 12 104/66 95 08/08/18 21:00 80 13 91/62 96 08/08/18 20:45 89 17 101/63 96 08/08/18 20:30 85 15 102/60 94 L 08/08/18 20:15 87 15 96/60 95 08/08/18 20:00 86 15 90/68 96 08/08/18 19:30 98.4 F 85 20 94/63 95 08/08/18 19:22 84 17 95 08/08/18 19:07 98.4 F 81 10 L 91/62 95 08/08/18 19:00 92 18 79/51 96 08/08/18 18:55 92 18 77/49 96 08/08/18 18:45 92 18 74/49 08/08/18 18:30 92 18 68/51 94 L 08/08/18 18:00 92 18 81/54 94 L 08/08/18 17:45 98 18 74/52 96 08/08/18 17:00 97 18 75/49 97 08/08/18 16:50 99.2 F 112 H 18 78/65 96 08/08/18 14:27 102.6 F H 139 H 18 81/60 94 L Intake and Output 08/08/18 08/09/18 08/09/18 22:59 06:59 14:59 Intake Total 898.992 5076.004 464.399 Output Total 200 575 50 Balance 460.036 805.004 414.399 Intake: IV 375 1000 125 Sodium Chloride 0.9% 1, 375 1000 125 000 ml @ 125 mls/hr IV . Q8H [facility] Rx#:[id number] Intake, IV Titration 285.036 380.004 339.399 Amount Norepinephrine 4 mg In 193.746 Sodium Chloride 0.9% 250 ml @ 0.05 MCG/KG/MIN 18. 405 mls/hr IV .[id number] [facility] Rx#:[id number] Norepinephrine 4 mg In 91.29 380.004 339.399 Sodium Chloride 0.9% 250 ml @ 0.05 MCG/KG/MIN 18. 405 mls/hr IV .[id number] [facility] Rx#:[id number] Output: Urine 200 575 50 Other: Weight 97 kg Gen: Alert and oriented in no acute distress Head NC NT Neck Supple, no cervical adenopathy noted Lungs diminished bibasilar, no increased effort Heart - Tachy regular Abdomen lower pelvic tenderness, soft Ext: no edema Evidence of bilateral external nephrostomy tubes and both draining Neuro: no sensory or motor deficits noted Results CBC & Chem 7: 08/09/18 05:30 08/09/18 05:30 Labs: Abnormal Lab Results - Last 24 Hours (Table) 08/08/18 08/08/18 08/08/18 Range/Units 15:27 15:27 15:27 WBC 17.0 H (3.8-10.6) k/uL RBC 3.25 L (3.80-5.40) m/uL Hgb 9.7 L (11.4-16.0) gm/dL Hct 31.1 L (34.0-46.0) % RDW 16.4 H (11.5-15.5) % Plt Count (150-450) k/uL Neutrophils # 16.2 H (1.3-7.7) k/uL Lymphocytes # 0.1 L (1.0-4.8) k/uL PT (9.0-12.0) sec INR (<1.2) Sodium 134 L (137-145) mmol/L Potassium 3.2 L (3.5-5.1) mmol/L Chloride (98-107) mmol/L Carbon Dioxide (22-30) mmol/L Creatinine 1.23 H (0.52-1.04) mg/dL Glucose 148 H (74-99) mg/dL POC Glucose (mg/dL) (75-99) mg/dL Plasma Lactic Acid Bassam 5.5 H* (0.7-2.0) mmol/L Calcium 8.0 L (8.4-10.2) mg/dL Magnesium (1.6-2.3) mg/dL Alkaline Phosphatase 129 H (38-126) U/L Total Protein 5.5 L (6.3-8.2) g/dL Albumin 2.2 L (3.5-5.0) g/dL Urine Appearance (Clear) Urine RBC (0-5) /hpf Urine WBC (0-5) /hpf Urine Mucus (None) /hpf 08/08/18 08/08/18 08/08/18 Range/Units 15:27 16:50 19:18 WBC (3.8-10.6) k/uL RBC (3.80-5.40) m/uL Hgb (11.4-16.0) gm/dL Hct (34.0-46.0) % RDW (11.5-15.5) % Plt Count (150-450) k/uL Neutrophils # (1.3-7.7) k/uL Lymphocytes # (1.0-4.8) k/uL PT 13.5 H (9.0-12.0) sec INR 1.3 H (<1.2) Sodium (137-145) mmol/L Potassium (3.5-5.1) mmol/L Chloride (98-107) mmol/L Carbon Dioxide (22-30) mmol/L Creatinine (0.52-1.04) mg/dL Glucose (74-99) mg/dL POC Glucose (mg/dL) 120 H (75-99) mg/dL Plasma Lactic Acid Bassam (0.7-2.0) mmol/L Calcium (8.4-10.2) mg/dL Magnesium (1.6-2.3) mg/dL Alkaline Phosphatase (38-126) U/L Total Protein (6.3-8.2) g/dL Albumin (3.5-5.0) g/dL Urine Appearance Bloody H (Clear) Urine RBC >182 H (0-5) /hpf Urine WBC >182 H (0-5) /hpf Urine Mucus Occasional H (None) /hpf 08/08/18 08/09/18 08/09/18 Range/Units 19:28 05:30 05:30 WBC 15.9 H (3.8-10.6) k/uL RBC 3.22 L (3.80-5.40) m/uL Hgb 9.8 L (11.4-16.0) gm/dL Hct 31.4 L (34.0-46.0) % RDW 16.5 H (11.5-15.5) % Plt Count 133 L (150-450) k/uL Neutrophils # 15.0 H (1.3-7.7) k/uL Lymphocytes # 0.2 L (1.0-4.8) k/uL PT (9.0-12.0) sec INR (<1.2) Sodium 136 L (137-145) mmol/L Potassium (3.5-5.1) mmol/L Chloride 109 H (98-107) mmol/L Carbon Dioxide 18 L (22-30) mmol/L Creatinine 1.13 H (0.52-1.04) mg/dL Glucose 121 H (74-99) mg/dL POC Glucose (mg/dL) (75-99) mg/dL Plasma Lactic Acid Bassam 2.4 H* (0.7-2.0) mmol/L Calcium 7.1 L (8.4-10.2) mg/dL Magnesium 1.2 L (1.6-2.3) mg/dL Alkaline Phosphatase (38-126) U/L Total Protein (6.3-8.2) g/dL Albumin (3.5-5.0) g/dL Urine Appearance (Clear) Urine RBC (0-5) /hpf Urine WBC (0-5) /hpf Urine Mucus (None) /hpf 08/09/18 Range/Units 09:59 WBC (3.8-10.6) k/uL RBC (3.80-5.40) m/uL Hgb (11.4-16.0) gm/dL Hct (34.0-46.0) % RDW (11.5-15.5) % Plt Count (150-450) k/uL Neutrophils # (1.3-7.7) k/uL Lymphocytes # (1.0-4.8) k/uL PT (9.0-12.0) sec INR (<1.2) Sodium (137-145) mmol/L Potassium (3.5-5.1) mmol/L Chloride (98-107) mmol/L Carbon Dioxide (22-30) mmol/L Creatinine (0.52-1.04) mg/dL Glucose (74-99) mg/dL POC Glucose (mg/dL) 114 H (75-99) mg/dL Plasma Lactic Acid Bassam (0.7-2.0) mmol/L Calcium (8.4-10.2) mg/dL Magnesium (1.6-2.3) mg/dL Alkaline Phosphatase (38-126) U/L Total Protein (6.3-8.2) g/dL Albumin (3.5-5.0) g/dL Urine Appearance (Clear) Urine RBC (0-5) /hpf Urine WBC (0-5) /hpf Urine Mucus (None) /hpf Microbiology - Last 24 Hours (Table) 08/08/18 16:50 Urine Culture - Preliminary Urine,Ureter Chest x-ray: report reviewed Assessment and Plan Plan: Assessment and Recommendations: 1. 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 Urethral Obstruction with Bilateral nephrostomy tubes in April 2018 (outside Hospital) 3. Fever: T-Max 102.6 since admission - Improving - IV antibiotics 4. Hematuria: - Urology is following - improving 5. DVT (history of) - On Eliquis - Monitor Bleeding, CBC 6. Leukocytosis - Likely reactive to infection 7. Normocytic Anemia: - Secondary to malignancy and Acute blood loss Physician Attest: I have completed the full history and physical and developed the above impression and plan and agree with this dictation, dictated as scribe
[2018-08-10] MEDS: LACTATED RINGERS 1,000 ML IV SCH ×4 (00:17→20:02)
[2018-08-10] MEDS: NOREPINEPHRINE 4 MG in SODIUM CHLORIDE 0.9% 250 ML IV SCH ×4 (01:30→14:46)
[2018-08-10 05:10] LABS: Albumin 1.6 g/dL (3.5-5.0); Calcium 6.6 mg/dL (8.4-10.2); Phosphorus 2.7 mg/dL (2.5-4.5); Potassium 3.7 mmol/L (3.5-5.1); Total Bilirubin 0.2 mg/dL (0.2-1.3); Total Protein 4.4 g/dL (6.3-8.2)
[2018-08-10] MEDS ORDERED: POTASSIUM CHLORIDE ER 20 MEQ TAB.ER PO STA (05:25)
[2018-08-10 06:04] LABS: Anisocytosis Slight; HCT 26.8 % (34.0-46.0); Hypochromasia Marked; MCHC 30.6 g/dL (31.0-37.0); MCV 97.8 fL (80.0-100.0); Macrocytosis Slight; Mean Platelet Volume 6.6; RBC 2.74 m/uL (3.80-5.40); RDW 16.5 % (11.5-15.5); WBC 10.6 k/uL (3.8-10.6)
[2018-08-10 06:26] LABS: HGB 8.2 gm/dL (11.4-16.0)
[2018-08-10 07:05] LABS: Band Neutrophils % 35 %; Eosinophils # (M) 0.11 k/uL (0-0.7); Lymphocytes # (M) 0.74 k/uL (1.0-4.8); Neutrophils % (M) 58 %; Nucleated Red Blood Cells 0 /100 WBC (0-0); Total Cells Counted 200
[2018-08-10 07:06] LABS: Polychromasia Present
[2018-08-10 07:07] LABS: Target Cells Present
[2018-08-10 07:08] LABS: Toxic Vacuolation Present
[2018-08-10 07:09] LABS: Poikilocytosis (M) Present
[2018-08-10 07:15] LABS: Platelet Count 44 k/uL (150-450)
--- NOTE | 2018-08-10 07:49 | PN ---
PROGRESS NOTE DATE OF SERVICE: 08/10/2018 Critical care time 33 minutes. This is a 57-year-old female that we are seeing here in the ICU for septic shock secondary to urinary tract infection. 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 In addition, she has evidence on chest x-ray of a left hilar mass. A recent hospitalization for urinary tract infection and cystitis, chronic anemia, hypokalemia, acute kidney injury, previous tobacco use. Hypertension and history of DVT. Currently, the patient is not making much progress as it relates to her blood pressure. She is still on norepinephrine at 15 mcg/minute. Her cortisol level was normal at 30. Her TSH was normal as well. She is receiving lactated Ringer's at 125 mL an hour and O2 at 3 L by nasal cannula. Yesterday we had issues with sinus tachycardia. It seems to be related to pain control and also temperature elevation. Anyway, today, she seems to be a bit more comfortable. She is not complaining of much today. No fever overnight. The patient's chest x-ray was reviewed. It shows some changes of mild fluid overload. Lung volumes are somewhat decreased and there is some mild basilar atelectasis. The patient did have a recent PET scan down in [place], which showed mets to the lung. The left hilar mass is very suspicious. Current vital signs include a temperature which is 97.4, a heart rate which is 74, respiratory rate which is 12, blood pressure 101/69, mean 79 and saturations are 97% on 3 L. Appears in no acute distress. Looks relatively comfortable. HEENT examination is grossly unremarkable. Mucous membranes are moist. Nasal O2 is noted. Neck is supple. Full range of motion. There is no adenopathy, thyromegaly or neck vein distention. Cardiovascular examination now reveals a regular rhythm and rate. Heart rate in mid 70s to low 80s. S1, S2 normal. No hear murmur. Lungs are relatively clear. A few scattered mild rhonchi. No wheezes or crackles. Abdomen is mildly tender on palpation. Bowel sounds are noted. Extremities are intact. There is no edema. Skin is pale, but there is no skin lesions or rash. Neurologic examination is brief but nonfocal. LABORATORY DATA: Reviewed. White count 10.6, down from 15.9, hemoglobin 8.2, hematocrit 26.8, platelet count has not yet been done. Sodium 137, potassium 3.7, chloride 111, CO2 is 20, anion gap is normal at 6, BUN and creatinine were 14 and 1.04. Lactic acid is down to 2.2. As I mentioned, the TSH was normal and the cortisol level was 30. Her ionized calcium was in normal range. Her protein calcium was low, but corrected for albumin was normal. Microbiologic studies are all negative save for some yeast in the urine. Antibiotic ng, she is on Rocephin. ASSESSMENT: 1. Acute septic shock secondary to presumed acute urinary tract infection, although so far urinalysis has been negative and blood cultures have been negative. 2. Anion gap metabolic acidosis. Acidosis, improved. 3. Hypotension secondary to sepsis, requiring fluid resuscitation and ongoing use of norepinephrine. 4. Stage IV mucinous adenocarcinoma of the bladder diagnosed back in March 2017, status post chemo and radiation and also bilateral nephrostomy tubes for ureteral obstruction. 5. Left hilar mass, likely representing metastasis. 6. Possible liver metastasis. 7. Chronic anemia. 8. Hypovolemia. 9. Acute kidney injury secondary to hypotension and sepsis. 10.Previous tobacco use. 11.History of hypertension. 12.History of deep venous thrombosis. PLAN: Currently, the patient is doing a bit better clinically. She still remains on norepinephrine at about 15 mcg/minute. That will be weaned. The patient has had received adequate fluid resuscitation. Thyroid functions is normal. Cortisol level is reasonable. No need for hydrocortisone at this time. The patient's overall prognosis is very guarded given the bladder cancer and the left hilar mass as well as a liver lesion. Additional recommendations and suggestions are forthcoming. We will continue to follow. She will be seen by Urology and Medical Oncology. She will remain on antibiotics. Critical care time 33 minutes. MMODL / IJN: [id number] /
--- NOTE | 2018-08-10 08:04 | XR ---
EXAMINATION TYPE: XR chest 1V DATE OF EXAM: 08/10/2018 COMPARISON: Prior chest x-ray 08/09/2018 HISTORY: Shortness of breath TECHNIQUE: Single frontal view of the chest is obtained. FINDINGS: Left hilar mass is again noted, some interval increase in airspace disease, density in the left upper lobe may be due to postobstructive change, pneumonia. Patchy perihilar density present on the right. No evident pneumothorax or pleural effusion. Heart size is stable. Port-A-Cath is unchang ed. IMPRESSION: Possible postobstructive changes, atelectasis, correlate for possible pneumonia.
[2018-08-10] MEDS: SENNOSIDES 8.6 MG TAB PO SCH ×2 (08:28→19:54)
[2018-08-10] MEDS: APIXABAN 5 MG TAB PO SCH ×2 (08:28→19:54)
[2018-08-10] MEDS: MAGNESIUM OXIDE 400 MG TAB PO SCH ×3 (08:28→19:54)
[2018-08-10] MEDS: SODIUM BICARBONATE TAB 650 MG TAB PO SCH ×3 (08:29→22:26)
[2018-08-10] MEDS: OXYBUTYNIN CHLORIDE 5 MG TAB PO SCH ×2 (09:55→22:26)
[2018-08-10] MEDS: FERROUS SULFATE 325 MG TAB PO SCH (09:55)
[2018-08-10] MEDS: GABAPENTIN 300 MG CAP PO SCH ×2 (09:55→19:54)
[2018-08-10] MEDS: HYDROmorphone 0.5 MG/0.5 ML SYRINGE IVP PRN ×4 (13:14→23:37)
[2018-08-10] MEDS: DICYCLOMINE 20 MG TAB PO PRN (16:12)
[2018-08-10] MEDS: MELATONIN 5 MG TABLET PO SCH (22:26)
[2018-08-11] MEDS: HYDROmorphone 0.5 MG/0.5 ML SYRINGE IVP PRN ×4 (03:06→12:09)
[2018-08-11 05:31] LABS: Anisocytosis Slight; Basophils % (A) 0 %; Eosinophils # (A) 0.1 k/uL (0-0.7); Eosinophils % (A) 1 %; HGB 8.5 gm/dL (11.4-16.0); Hypochromasia Marked; Lymphocytes # (A) 0.6 k/uL (1.0-4.8); Lymphocytes % (A) 11 %; MCH 29.5 pg (25.0-35.0); MCHC 30.2 g/dL (31.0-37.0); MCV 97.6 fL (80.0-100.0); Macrocytosis Slight; Mean Platelet Volume 7.2; Monocytes # (A) 0.2 k/uL (0-1.0); Monocytes % (A) 4 %; Neutrophils # (A) 4.2 k/uL (1.3-7.7); Neutrophils % (A) 82 %; RBC 2.87 m/uL (3.80-5.40); RDW 16.3 % (11.5-15.5); WBC 5.1 k/uL (3.8-10.6)
[2018-08-11 05:40] LABS: Platelet Count 30 k/uL (150-450)
[2018-08-11 05:44] LABS: Calcium 7.3 mg/dL (8.4-10.2); Magnesium 1.9 mg/dL (1.6-2.3); Phosphorus 2.7 mg/dL (2.5-4.5)
[2018-08-11] MEDS ORDERED: Magnesium Replacement Protocol 1 EACH MISC MISCELLANE PRN (06:53)
[2018-08-11] MEDS: SODIUM BICARBONATE TAB 650 MG TAB PO SCH ×3 (08:20→22:26)
[2018-08-11] MEDS: MAGNESIUM OXIDE 400 MG TAB PO SCH ×3 (08:21→22:28)
[2018-08-11] MEDS: SENNOSIDES 8.6 MG TAB PO SCH ×2 (08:21→22:27)
[2018-08-11] MEDS: FERROUS SULFATE 325 MG TAB PO SCH (08:21)
[2018-08-11] MEDS: MAGNESIUM SULFATE-D5W PMX 1 GM in DEXTROSE/WATER 1 100ML.BAG IVPB SCH ×2 (08:21→09:46)
[2018-08-11] MEDS: DICYCLOMINE 20 MG TAB PO PRN ×3 (08:22→22:34)
--- NOTE | 2018-08-11 08:23 | PN ---
PROGRESS NOTE DATE OF SERVICE: 08/10/2018 PRESENTING COMPLAINT: Tired. INTERVAL HISTORY: This pleasant lady with stage IV end-stage bladder cancer metastatic, admitted with UTI, sepsis and septic shock in the ICU. I saw this patient this afternoon. Patient remains on Levophed, IV fluids, rather tired, rundown, not eating much. REVIEW OF SYSTEMS: Could not be done as patient is rather tired. CURRENT MEDICATIONS: Reviewed include IV ceftriaxone, Levophed, IV fluids. PHYSICAL EXAMINATION: Afebrile, pulse 101, respirations 17, blood pressure 111/66.F pulse 95 percent. GENERAL APPEARANCE: Lying in bed rather tired, arousable. EYES: Pupils equal. Conjunctivae are pale. NECK: JVD unable to assess. Mass not palpable. RESPIRATORY: Effort normal. LUNGS: Fair entry. CARDIOVASCULAR: First and second wounds normal, some edema present. ABDOMEN: Lower abdominal tenderness. No guarding or rigidity. Liver and spleen not palpable. PSYCHIATRY: Mood and affect low. INVESTIGATIONS: White count 10.6, hemoglobin 8.2, platelets 44. ASSESSMENT: 1. Acute severe urinary tract infection from cystitis causing septic shock, slow to respond from underlying setting of bladder cancer. 2. Metastatic bladder cancer, stage IV, status post chemo and radiation treatment. Not felt to be a candidate for any further benefit from any treatment. 3. Obstructive sleep apnea, uses CPAP machine. 4. Obesity; body mass index 34.5. 5. Medical asthenia from underlying malignancy. 6. Hypoalbuminemia from protein calorie malnutrition from decreased oral intake, mild. 7. Acute left leg deep venous thrombosis, for which patient is on Eliquis. 8. Normocytic anemia of malignancy. 9. Metabolic acidosis, bicarb is 18. 10.Lactic acid from sepsis. 11.Hypomagnesemia. 12.Thrombocytopenia, acute, patient is on Eliquis. PLAN: Patient was having more abdominal pain. I did order Bentyl. Also ordered IV Dilaudid and also heating pad. Will hold off patient's Eliquis, given that the platelets have dropped to below 50. Prognosis remains guarded in this unfortunate lady with progressive end-stage bladder cancer. MMODL / IJN: [id number] /
--- NOTE | 2018-08-11 09:03 | XR ---
EXAMINATION TYPE: XR chest 1V DATE OF EXAM: 08/11/2018 COMPARISON: 08/10/2018 HISTORY: Shortness of breath TECHNIQUE: Single frontal view of the chest is obtained. FINDINGS: Mediport catheter seen and there is left lower lobe consolidation with small bilateral eff usion. Left upper lobe mass with subsegmental consolidation stable. IMPRESSION: Bilateral small effusions with left upper lobe and lower lobe infiltrate. Stable left hi lar mass.
[2018-08-11] MEDS: LACTATED RINGERS 1,000 ML IV SCH ×2 (09:17→16:35)
[2018-08-11] MEDS: GABAPENTIN 300 MG CAP PO SCH ×2 (09:23→22:28)
[2018-08-11] MEDS: OXYBUTYNIN CHLORIDE 5 MG TAB PO SCH ×2 (09:23→22:27)
[2018-08-11] MEDS ORDERED: LIDOCAINE URO-JET JELLY 2% 5 ML KIT URETHRAL ONE (09:38)
--- NOTE | 2018-08-11 10:53 | PN ---
PROGRESS NOTE DATE OF SERVICE: 08/11/2018 Critical care time 34 minutes. This is a 57-year-old female that we have been seeing here in the ICU for septic shock secondary to urinary tract infection/urosepsis. She also has a history of anion gap metabolic acidosis and a previous history of stage IV mucinous adenocarcinoma of the bladder. This was diagnosed back in March 2017. She also has evidence on chest x- ray of a left hilar mass. There may be also some postoperative pneumonic changes behind the mass. She had a recent hospitalization for urinary tract infection and cystitis. She has a history of chronic anemia, hypokalemia, acute kidney injury, and a previous history of tobacco use. In addition, she suffers from benign essential hypertension and a history of DVT. Currently, she has made some progress since yesterday in regards to her pressor requirements. She is now down to 2.85 mcg/minute of norepinephrine. Yesterday, she was on about 15 mcg/minute. She had a relatively normal cortisol level. Her TSH was normal as well. She has had some issues with pain and also some tachycardia and fever. Those have been better controlled. Currently, she is on O2 at 3 L by nasal cannula and an IV of LR at 1:25 am an hour. The norepinephrine is a 2.85 mcg/minute. Microbiologic studies thus far have been negative. Chest x-ray continues to show some atelectasis and some minimal interstitial changes. She is awake and alert. Overall prognosis though is poor. Her PET scan done in [place] showed mets to the lung. The lung to the left hilar mass is very suspicious as well. Current vital signs are reviewed. Temperature is 98.7, heart rate 100, respiratory rate 14, blood pressure 93/64, mean 73, 3 L saturation 95%. She appears in no acute distress, although she is having some pain in the abdominal area. HEENT examination is grossly unremarkable. Nasal O2 in place. Neck is supple. Full range of motion. No adenopathy, thyromegaly or neck vein distention. Cardiovascular examination reveals mild tachycardia. Heart rate 105. S1, S2 normal. There is no murmur. No S3 or S4. Lungs reveal mostly clear breath sounds. There is a few scattered rhonchi. No wheezes or crackles. Abdomen is mildly tender on palpation. It is mildly distended. Bowel sounds are noted. Extremities are intact. There is no edema. Skin without rash. Neurologic examination is brief but nonfocal. LAB STUDIES: Microbiological studies are thus far all negative. Labs are reviewed. White count 5.1, hemoglobin 8.5, hematocrit 28.0, platelet count is 30,000. Sodium 137, potassium 4, chloride 111, CO2 is 25, anion gap is 1, BUN and creatinine were 14 and 0.86. Lactic acid is up to 3.2 from 2.2. Medications are reviewed. The patient remains on Rocephin. ASSESSMENT: 1. Acute septic shock secondary to presumed acute urinary tract infection, although, so far, urinalysis has been negative and blood cultures have been negative. 2. Anion gap metabolic acidosis, improved. 3. Hypotension secondary to sepsis, required significant fluid resuscitation and ongoing use of norepinephrine, although it's quantity has decreased. 4. Stage IV mucinous adenocarcinoma of the bladder diagnosed back in March 2017, status post chemo and radiation therapy as well as bilateral nephrostomy tubes for ureteral obstruction. 5. Left hilar mass, likely representing metastasis. 6. Possible liver metastasis. 7. Chronic anemia. 8. Hypovolemia. 9. Acute kidney injury secondary to hypotension and sepsis. 10.Previous tobacco use. 11.History of hypertension. 12.History of deep venous thrombosis. PLAN: Currently, the patient is doing a bit better in regards to the amount of norepinephrine that she has required to maintain normal blood pressures. We had been able to wean her down from 15 mcg/minute down to 2.85 mcg/minute. Cortisol level was reasonable. Thyroid function was normal. No need for hydrocortisone at this time. Overall prognosis remains poor given the previous PET scan from [place] and the chest x- ray now showing left hilar mass and possible postobstructive pneumonia. The patient continues to be seen by both Urology and Medical Oncology. Prognosis is very poor. Hopefully, we will be able to get her off the norepinephrine and place her in an Oncology bed up on the floor. Critical care time 34 minutes. MMODL / IJN: [id number] /
--- NOTE | 2018-08-11 11:05 | P.PN ---
Progress Note - Text Progress Note Date: 08/11/18 The patient is afebrile. Her systolic pressure is in the 90s to 100s. She continues to complain of lower abdominal discomfort and says that she feels that is coming from the bladder. White blood count is improved at 5200. Urine draining from her nephrostomy catheters are clear to blood-tinged as expected. I explained to the patient that her bladder pain may be related to infection in the bladder and that unfortunately a culture from her bladder was never obtained at the time of admission. She has an essentially defunctionalized bladder and can develop pyocystis. I discussed the placement of a Bose catheter to obtain fluid for culture and possibly to instill anesthetic into the bladder for relief of her discomfort. This will be performed later today.
[2018-08-11 12:41] LABS: INR 1.2 (<1.2); Partial Thromboplastin Time 35.5 sec (22.0-30.0); Prothrombin Time 12.3 sec (9.0-12.0)
--- NOTE | 2018-08-11 14:43 | CDI ---
Dr. Sarthak Cagle A diagnosis of UTI has been documented in the [facility]. History/Risk Factors: 57-year-old female with a history of bladder cancer presents to the ED with a fever. Medical history Bladder Cancer and recent urinary tract infection. Per documentation in the [facility] this patient was admitted with Bilateral Nephrostomy Tubes placed last April. Clinical Indicators: Urology Progress Note 08/11/18 bladder pain may be related to infection in the bladder and that unfortunately a culture from her bladder was never obtained at time of admission Urinalysis: Dark Red, Bloody, RBC 182; WBC 182, Occasional Mucus Urine culture: Radha Albicans Lab results: Wbc 17.0; Lactic acid 5.5; Treatment: Rocephin In your professional opinion, can you please clarify the etiology of the UTI, if known? * UTI related Nephrostomy Tubes * UTI not related to Nephrostomy Tubes * Other condition, please specify * Unable to determine If an infective organism is present, please specify cause and effect relationship if applicable. (Last Revision: August 2017) UTI not related to nephrostomy tubes MTDD
--- NOTE | 2018-08-11 14:52 | P.PN ---
Subjective this is a pleasant 57 yo F with pmh of the venous thrombosis on anticoagulation as Holly, sleep apnea, stage IV bladder cancer, status post chemotherapy she presents because of lower abdominal pain, urinary bladder pressure and hematuria. She is status post bilateral nephrostomy tube and she's been evaluated by urologist Dr. Rasmussen. On admission patient had septic shock secondary to UTI and she's been on pressors. Her blood pressure gets more stabilized and she is off Levophed today. Her blood pressure 106/76. Heart rate 105. She saturating 94-95% on 3 L oxygen via NC. She had fever of 100.2 yesterday and 99.9 today. She continued to be on ceftriaxone and urine cultures showing Radha albicans. Patient has been evaluated by critical care team who cleared her for discharge out of the ICU. She still complaining of from signif icant pressure symptoms in the bladder with spasms. Plan to try to place Bose catheter today recommended by urologist team. Patient Holly was on hold due to thrombocytopenia. Hematology oncology team are following the patient. Patient on multiple pain medication including Bentyl, fentanyl, Neurontin and [place]. Labs and medication were reviewed showing no leukocytosis. Hemoglobin is stable at 8.5. Platelets troponin from 44 down to 30. INR 1.2. Serum creatinine came back to normal at 0.8. High creatinine is normalized. Patient currently on ceftriaxone. Review of systems CONSTITUTIONAL: No fever, no malaise, no fatigue. HEENT: No recent visual problems or hearing problems. Denied any sore throat. CARDIOVASCULAR: No orthopnea, PND, no palpitations, no syncope. PULMONARY: No shortness of breath, no cough, no hemoptysis. GASTROINTESTINAL: No diarrhea, no nausea, no vomiting, no abdominal pain. Normoactive bowel sounds. NEUROLOGICAL: No headaches, no weakness, no numbness. HEMATOLOGICAL: Denies any bleeding or petechiae. MUSCULOSKELETAL/RHEUMATOLOGICAL: Denies any joint pain, swelling, or any muscle pain. ENDOCRINE: Denies any polyuria or polydipsia. Medication: Tylenol, ceftriaxone, Bentyl, fentanyl, ferrous sulfate, Neurontin, Dilaudid, Ringer lactate, magnesium oxide, melatonin, Zofran, Ditropan, oxycodone, Senokot, sodium bicarbonate. Objective - Vital Signs Vital signs: Vital Signs Temp 97.8 F 08/11/18 12:00 Pulse 105 H 08/11/18 14:00 Resp 11 L 08/11/18 14:00 BP 106/76 08/11/18 14:00 Pulse Ox 94 L 08/11/18 14:00 Intake & Output 08/10/18 08/11/18 08/11/18 18:59 06:59 18:59 Intake Total 2653.375 1725 1569.479 Output Total 1685 550 225 Balance 514.711 4775 1344.479 Weight 104.3 kg Intake: IV 1500 1625 625 Lactated Ringers 1,000 ml 1500 1625 625 @ 125 mls/hr IV .Q8H [facility] Rx#:[id number] Intake, IV Titration 393.375 344.479 Amount Magnesium Sulfate-D5w Pmx 200 1 gm In Dextrose/Water 1 100ml.bag @ 100 mls/hr IVPB Q1H [facility] Rx#: [id number] Norepinephrine 4 mg In 393.375 144.479 Sodium Chloride 0.9% 250 ml @ 0.05 MCG/KG/MIN 18. 405 mls/hr IV .[id number] [facility] Rx#:[id number] Oral 760 600 Tube Feeding 100 Output: Urine 1685 550 225 Other: Voiding Method Ileal Conduit (Right) Ileal Conduit (Left) # Bowel Movements 1 - Exam GENERAL: The patient is alert and oriented x3, not in any acute distress. Well developed, well nourished. HEENT: Pupils are round and equally reacting to light. EOMI. No scleral icterus. No conjunctival pallor. Normocephalic, atraumatic. No pharyngeal erythema. No thyromegaly. CARDIOVASCULAR: S1 and S2 present. No murmurs, rubs, or gallops. PULMONARY: Chest is clear to auscultation, no wheezing or crackles. -ABDOMEN: Soft, suprapubic tenderness, no rebound tenderness, nondistended, nor moactive bowel sounds. No palpable organomegaly. Nephrostomy tube is in Place MUSCULOSKELETAL: No joint swelling or deformity. EXTREMITIES: No cyanosis, clubbing, or pedal edema. NEUROLOGICAL: Gross neurological examination did not reveal any focal deficits. SKIN: No rashes. - Labs CBC & Chem 7: 08/11/18 05:04 08/11/18 05:04 Labs: Abnormal Lab Results - Last 24 Hours (Table) 08/11/18 08/11/18 08/11/18 Range/Units 05:04 05:04 12:24 RBC 2.87 L (3.80-5.40) m/uL Hgb 8.5 L (11.4-16.0) gm/dL Hct 28.0 L (34.0-46.0) % MCHC 30.2 L (31.0-37.0) g/dL RDW 16.3 H (11.5-15.5) % Plt Count 30 L (150-450) k/uL Lymphocytes # 0.6 L (1.0-4.8) k/uL PT 12.3 H (9.0-12.0) sec INR 1.2 H (<1.2) APTT 35.5 H (22.0-30.0) sec Chloride 111 H (98-107) mmol/L Calcium 7.3 L (8.4-10.2) mg/dL Microbiology - Last 24 Hours (Table) 08/08/18 16:50 Urine Culture - Final Urine,Ureter Radha albicans 08/08/18 15:27 Blood Culture - Preliminary Blood No Growth after 48 hours Assessment and Plan Assessment: urinary bladder cancer, stage IV, status post chemo and radiotherapy and status post nephrostomy tube. With pulmonary metastases Septic shock secondary to UTI, resolved Urinary tract infection with hematuria Possible urinary tract obstruction, need for Bose catheter placement Acute kidney injury, resolved History of DVT on Eliquis. Which is on hold Thrombocytopenia, mostly secondary to sepsis. Hold Eliquis for now Left hilar mass, suspicious for pulmonary metastasis of her urinary bladder cancer Has post obstructive atelectasis History of sleep apnea Plan: This is a pleasant 57 years old female who presents because of septic shock secondary to UTI, she is urinary bladder cancer patient. Continue with antibiotic. Tried to place Bose catheter. Follow-up urology recommendation. Pulmonary/critical care and oncology team consult. Continue with IV fluids and antibiotic for now. Keep holding the Eliquis as long as platelets count less than 50 K.Labs and medication were reviewed.. Continue same treatment. Continue with symptomatic treatment. Resume home medication. Monitor lytes and vitals. DVT and GI prophylaxis. Further recommendations of the clinical course of the patient DVT prophylaxis: Eliquis on hold due to thrombocytopenia GI Prophylaxis: Pepcid Prognosis is guarded
[2018-08-11] MEDS: FAMOTIDINE 20 MG/2 ML VIAL IV SCH ×2 (16:35→22:23)
--- NOTE | 2018-08-11 17:04 | P.PN ---
Subjective Progress Note Date: 08/11/18 Principal diagnosis: Metastatic Bladder Cancer Platelets continue to drop, down to 30K today, likely related to sepsis. Objective - Vital Signs Vital signs: Vital Signs Temp 99.6 F 08/11/18 16:00 Pulse 100 08/11/18 16:00 Resp 11 L 08/11/18 16:00 BP 105/67 08/11/18 16:00 Pulse Ox 92 L 08/11/18 16:00 Intake & Output 08/10/18 08/11/18 08/11/18 18:59 06:59 18:59 Intake Total 2653.375 1725 2069.479 Output Total 1685 550 475 Balance 203.529 8541 1594.479 Weight 104.3 kg Intake: IV 1500 1625 1125 Lactated Ringers 1,000 ml 1500 1625 1125 @ 125 mls/hr IV .Q8H [facility] Rx#:[id number] Intake, IV Titration 393.375 344.479 Amount Magnesium Sulfate-D5w Pmx 200 1 gm In Dextrose/Water 1 100ml.bag @ 100 mls/hr IVPB Q1H [facility] Rx#: [id number] Norepinephrine 4 mg In 393.375 144.479 Sodium Chloride 0.9% 250 ml @ 0.05 MCG/KG/MIN 18. 405 mls/hr IV .[id number] [facility] Rx#:[id number] Oral 760 600 Tube Feeding 100 Output: Urine 1685 550 475 Other: Voiding Method Ileal Conduit (Right) Ileal Conduit (Right) Ileal Conduit (Left) Ileal Conduit (Left) # Bowel Movements 1 - Exam Gen: Alert and oriented in no acute distress Head NC NT Neck Supple, no cervical adenopathy noted Lungs diminished bibasilar, no increased effort Heart - Tachy regular Abdomen lower pelvic tenderness, soft Ext: no edema Evidence of bilateral external nephrostomy tubes and both draining Neuro: no sensory or motor deficits noted - Labs CBC & Chem 7: 08/11/18 05:04 08/11/18 05:04 Labs: Abnormal Lab Results - Last 24 Hours (Table) 08/11/18 08/11/18 08/11/18 Range/Units 05:04 05:04 12:24 RBC 2.87 L (3.80-5.40) m/uL Hgb 8.5 L (11.4-16.0) gm/dL Hct 28.0 L (34.0-46.0) % MCHC 30.2 L (31.0-37.0) g/dL RDW 16.3 H (11.5-15.5) % Plt Count 30 L (150-450) k/uL Lymphocytes # 0.6 L (1.0-4.8) k/uL PT 12.3 H (9.0-12.0) sec INR 1.2 H (<1.2) APTT 35.5 H (22.0-30.0) sec Chloride 111 H (98-107) mmol/L Calcium 7.3 L (8.4-10.2) mg/dL Microbiology - Last 24 Hours (Table) 08/08/18 16:50 Urine Culture - Final Urine,Ureter Radha albicans 08/08/18 15:27 Blood Culture - Preliminary Blood No Growth after 48 hours Assessment and Plan Plan: Assessment and Recommendations: 1. 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 Urethral Obstruction with Bilateral nephrostomy tubes in April 2018 (outside Hospital) 3. Fever: - IV antibiotics 4. Hematuria: - Urology is following - improving 5. DVT (history of) - On Eliquis - Hold - Monitor Bleeding, CBC 6. Leukocytosis - Likely reactive to infection 7. Normocytic Anemia: - Secondary to malignancy and Acute blood loss 8. Thrombocytopenia: - Likely related to sepsis, monitor for bleeding - Monitor CBC Daily - Monitor Coags, Fibrinogen - Hold Eliquis until platlets grezter than 50K Physician Attest: I have completed the full history and physical and developed the above impression and plan and agree with this dictation, dictated as scribe
[2018-08-11] MEDS: MELATONIN 5 MG TABLET PO SCH (22:27)
[2018-08-12] MEDS: HYDROmorphone 0.5 MG/0.5 ML SYRINGE IVP PRN ×2 (00:59→12:07)
[2018-08-12] MEDS: LACTATED RINGERS 1,000 ML IV SCH ×2 (01:02→10:51)
[2018-08-12 04:40] LABS: INR 1.1 (<1.2); Prothrombin Time 11.6 sec (9.0-12.0)
[2018-08-12 04:41] LABS: Partial Thromboplastin Time 33.6 sec (22.0-30.0)
[2018-08-12 04:53] LABS: Anisocytosis Slight; Basophils % (A) 0 %; Eosinophils # (A) 0.1 k/uL (0-0.7); Eosinophils % (A) 1 %; HCT 27.4 % (34.0-46.0); HGB 8.7 gm/dL (11.4-16.0); Hypochromasia Marked; Lymphocytes # (A) 0.6 k/uL (1.0-4.8); Lymphocytes % (A) 14 %; MCH 30.4 pg (25.0-35.0); MCHC 31.7 g/dL (31.0-37.0); MCV 95.9 fL (80.0-100.0); Mean Platelet Volume 7.8; Monocytes # (A) 0.2 k/uL (0-1.0); Monocytes % (A) 3 %; Neutrophils # (A) 3.5 k/uL (1.3-7.7); Neutrophils % (A) 79 %; RBC 2.86 m/uL (3.80-5.40); RDW 16.2 % (11.5-15.5); WBC 4.4 k/uL (3.8-10.6)
[2018-08-12 04:55] LABS: Platelet Count 27 k/uL (150-450)
[2018-08-12 04:56] LABS: ALT 27 U/L (9-52); AST 25 U/L (14-36); Albumin 1.6 g/dL (3.5-5.0); Alkaline Phosphatase 148 U/L (38-126); Anion Gap 4 mmol/L; Blood Urea Nitrogen 15 mg/dL (7-17); Calcium 7.7 mg/dL (8.4-10.2); Carbon Dioxide 28 mmol/L (22-30); Chloride 107 mmol/L (98-107); Glucose 84 mg/dL (74-99); Magnesium 2.1 mg/dL (1.6-2.3); Potassium 3.7 mmol/L (3.5-5.1); Sodium 139 mmol/L (137-145); Total Bilirubin 0.3 mg/dL (0.2-1.3); Total Protein 4.2 g/dL (6.3-8.2)
[2018-08-12] MEDS ORDERED: Potassium Replacement Protocol 1 EACH MISC MISCELLANE PRN (07:45)
[2018-08-12] MEDS ORDERED: POTASSIUM CHLORIDE ER 20 MEQ TAB.ER PO ONE (08:00)
[2018-08-12] MEDS: FAMOTIDINE 20 MG/2 ML VIAL IV SCH (09:30)
[2018-08-12] MEDS: MAGNESIUM OXIDE 400 MG TAB PO SCH ×3 (09:31→20:10)
[2018-08-12] MEDS: SODIUM BICARBONATE TAB 650 MG TAB PO SCH ×3 (09:31→20:11)
[2018-08-12] MEDS: SENNOSIDES 8.6 MG TAB PO SCH ×2 (09:31→20:10)
[2018-08-12] MEDS: FERROUS SULFATE 325 MG TAB PO SCH (09:32)
[2018-08-12] MEDS: GABAPENTIN 300 MG CAP PO SCH ×2 (09:32→20:11)
[2018-08-12] MEDS: OXYBUTYNIN CHLORIDE 5 MG TAB PO SCH ×2 (09:32→20:11)
--- NOTE | 2018-08-12 10:29 | P.PN ---
Subjective Progress Note Date: 08/12/18 Principal diagnosis: Exploratory laparotomy, sigmoid colectomy and colostomy, ventral hernia repair and partial omentectomy for person aspirated viscus. Postoperative day #3. The patient is seen today in follow-up in the intensive care unit. She is currently awake and alert in no acute distress. She is maintaining O2 saturations in the 90s on 2 L/m per nasal cannula. She's been afebrile. Hemodynamically stable. White count 9.0. Hemoglobin 10.4. Creatinine 0.60. AST 62, ALT 47, alk phos 318. Pathology from colon resection revealed no malignancy. Wound cultures are positive for Enterococcus faecalis, Citrobacter species, E. coli. Urine culture is positive for Enterococcus faecalis. She remains on Zosyn. She has a lactated Ringer's at 125 per hour. She has been weaned off the levo fed. Objective - Vital Signs Vital signs: Vital Signs Temp 98.9 F 08/12/18 08:00 Pulse 90 08/12/18 08:00 Resp 11 L 08/12/18 08:00 BP 109/70 08/12/18 08:00 Pulse Ox 95 08/12/18 08:00 Intake & Output 08/11/18 08/12/18 08/12/18 18:59 06:59 18:59 Intake Total 2069.479 1500 75 Output Total 475 550 150 Balance 1594.479 950 -75 Weight 104 kg Intake: IV 1125 1500 75 Lactated Ringers 1,000 ml 1125 1500 75 @ 75 mls/hr IV .[id number] [facility] Rx#:[id number] Intake, IV Titration 344.479 Amount Magnesium Sulfate-D5w Pmx 200 1 gm In Dextrose/Water 1 100ml.bag @ 100 mls/hr IVPB Q1H [facility] Rx#: [id number] Norepinephrine 4 mg In 144.479 Sodium Chloride 0.9% 250 ml @ 0.05 MCG/KG/MIN 18. 405 mls/hr IV .[id number] [facility] Rx#:[id number] Oral 600 Output: Urine 475 550 150 Other: Voiding Method Ileal Conduit (Right) Ileal Conduit (Right) Ileal Conduit (Right) Ileal Conduit (Left) Ileal Conduit (Left) Ileal Conduit (Left) - Exam GENERAL EXAM: Alert, fairly comfortable in no apparent distress. On 2 L/m per nasal cannula. HEAD: Normocephalic. EYES: Normal reaction of pupils, equal size. NOSE: Clear with pink turbinates. THROAT: No erythema or exudates. NECK: No masses, no JVD. CHEST: No chest wall deformity. LUNGS: Equal air entry with no crackles, wheeze, rhonchi or dullness. CVS: S1 and S2 normal with no audible murmur, regular rhythm. ABDOMEN: Some tenderness. Dressing to midline incision dry and intact. Ostomy left lower quadrant with no gas or stool noted. Drainage tube in place. SPINE: No scoliosis or deformity SKIN: No rashes CENTRAL NERVOUS SYSTEM: No focal deficits, tone is normal in all 4 extremities. EXTREMITIES: There is no peripheral edema. No clubbing, no cyanosis. Peripheral pulses are intact. - Labs CBC & Chem 7: 08/12/18 04:20 08/12/18 04:20 Labs: Abnormal Lab Results - Last 24 Hours (Table) 08/11/18 08/11/18 08/12/18 Range/Units 12:24 17:11 04:20 RBC 2.86 L (3.80-5.40) m/uL Hgb 8.7 L (11.4-16.0) gm/dL Hct 27.4 L (34.0-46.0) % RDW 16.2 H (11.5-15.5) % Plt Count 27 L (150-450) k/uL Lymphocytes # 0.6 L (1.0-4.8) k/uL PT 12.3 H (9.0-12.0) sec INR 1.2 H (<1.2) APTT 35.5 H (22.0-30.0) sec Fibrinogen 620 H (200-500) mg/dL Calcium (8.4-10.2) mg/dL Alkaline Phosphatase (38-126) U/L Total Protein (6.3-8.2) g/dL Albumin (3.5-5.0) g/dL 08/12/18 08/12/18 Range/Units 04:20 04:20 RBC (3.80-5.40) m/uL Hgb (11.4-16.0) gm/dL Hct (34.0-46.0) % RDW (11.5-15.5) % Plt Count (150-450) k/uL Lymphocytes # (1.0-4.8) k/uL PT (9.0-12.0) sec INR (<1.2) APTT 33.6 H (22.0-30.0) sec Fibrinogen (200-500) mg/dL Calcium 7.7 L (8.4-10.2) mg/dL Alkaline Phosphatase 148 H (38-126) U/L Total Protein 4.2 L (6.3-8.2) g/dL Albumin 1.6 L (3.5-5.0) g/dL Microbiology - Last 24 Hours (Table) 08/11/18 15:00 Urine Culture - Preliminary Urine,Catheterized 08/08/18 15:27 Blood Culture - Preliminary Blood No Growth after 72 hours Assessment and Plan Assessment: Impression: #1 Abdominal pain, status post exploratory laparotomy, sigmoid colectomy and colostomy, ventral hernia repair and partial omentectomy for perforated viscus. Postoperative day #3. Pathology negative for malignancy. #2 Metastatic breast cancer with multiple osseous metastasis. #3 Status post bilateral mastectomy. 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 #5 Hypothyroidism. #6 Hypertension Plan: The patient was seen and evaluated by Dr. Steen. She is stable for transfer out of the intensive care unit today. We'll decrease her lactated Ringer's at 75 ML's per hour. Add incentive spirometer and encourage increased cough and deep breathing exercises. Continue current antibiotics. Increase activity as tolerated. We'll continue to follow and make further recommendations based on her clinical status. I, the cosigning physician, performed a history & physical examination of the patient. Lungs sounds are clear. Maintaining good O2 saturations in the 90s on 2 L/m per nasal cannula. I discussed the assessment and plan of care with my nurse practitioner, Esther Bruner. I attest to the above note as dictated by her.
[2018-08-12 11:12] VITALS: BMI 37.0
--- NOTE | 2018-08-12 11:47 | P.PN ---
Subjective this is a pleasant 57 yo F with pmh of the venous thrombosis on anticoagulation as Holly, sleep apnea, stage IV bladder cancer, status post chemotherapy she presents because of lower abdominal pain, urinary bladder pressure and hematuria. She is status post bilateral nephrostomy tube and she's been evaluated by urologist Dr. Rasmussen. On admission patient had septic shock secondary to UTI and she's been on pressors. Her blood pressure gets more stabilized and she is off Levophed today. Her blood pressure 106/76. Heart rate 105. She saturating 94-95% on 3 L oxygen via NC. She had fever of 100.2 yesterday and 99.9 today. She continued to be on ceftriaxone and urine cultures showing Radha albicans. Patient has been evaluated by critical care team who cleared her for discharge out of the ICU. She still complaining of from signif icant pressure symptoms in the bladder with spasms. Plan to try to place Bose catheter today recommended by urologist team. Patient Eliquis was on hold due to thrombocytopenia. Hematology oncology team are following the patient. Patient on multiple pain medication including Bentyl, fentanyl, Neurontin and [place]. Labs and medication were reviewed showing no leukocytosis. Hemoglobin is stable at 8.5. Platelets troponin from 44 down to 30. INR 1.2. Serum creatinine came back to normal at 0.8. High creatinine is normalized. Patient currently on ceftriaxone. 08/12/2018 Patient still have difficulty making urine, they have to straight catheter to send a urine sample. No Bose catheter could be placed. Patient with significant abdominal pain that comes basically in his spasm, severe. No chest pain or dyspnea. Patient is not coughing. If her stomach tube were in place. No fever in the last 24 hours. Blood pressure 109/70. Saturating 95% on 3 L oxygen via NC. Labs from today showing WBC 4.4K, hemoglobin 8.7. Platelets coming down 30 to 27k. No signs of active bleeding. Patient is fully awake and oriented. Eliquis on hold due to thrombocytopenia. Lactic acid back to normal at 1.6. Patient has been off levophed , she was cleared BY ICU team to be transfer to the general medical floor Objective - Vital Signs Vital signs: Vital Signs Temp 98.9 F 08/12/18 08:00 Pulse 90 08/12/18 08:00 Resp 11 L 08/12/18 08:00 BP 109/70 08/12/18 08:00 Pulse Ox 95 08/12/18 08:00 Intake & Output 08/11/18 08/12/18 08/12/18 18:59 06:59 18:59 Intake Total 2069.479 1500 75 Output Total 475 550 150 Balance 1594.479 950 -75 Weight 104 kg 104 kg Intake: IV 1125 1500 75 Lactated Ringers 1,000 ml 1125 1500 75 @ 75 mls/hr IV .[id number] [facility] Rx#:[id number] Intake, IV Titration 344.479 Amount Magnesium Sulfate-D5w Pmx 200 1 gm In Dextrose/Water 1 100ml.bag @ 100 mls/hr IVPB Q1H [facility] Rx#: [id number] Norepinephrine 4 mg In 144.479 Sodium Chloride 0.9% 250 ml @ 0.05 MCG/KG/MIN 18. 405 mls/hr IV .[id number] [facility] Rx#:[id number] Oral 600 Output: Urine 475 550 150 Other: Voiding Method Ileal Conduit (Right) Ileal Conduit (Right) Ileal Conduit (Right) Ileal Conduit (Left) Ileal Conduit (Left) Ileal Conduit (Left) - Exam GENERAL: The patient is alert and oriented x3, not in any acute distress. Well developed, well nourished. HEENT: Pupils are round and equally reacting to light. EOMI. No scleral icterus. No conjunctival pallor. Normocephalic, atraumatic. No pharyngeal erythema. No thyromegaly. CARDIOVASCULAR: S1 and S2 present. No murmurs, rubs, or gallops. PULMONARY: Chest is clear to auscultation, no wheezing or crackles. -ABDOMEN: Soft, suprapubic tenderness, no rebound tenderness, nondistended, normoactive bowel sounds. No palpable organomegaly. Nephrostomy tube is in Plac e MUSCULOSKELETAL: No joint swelling or deformity. EXTREMITIES: No cyanosis, clubbing, or pedal edema. NEUROLOGICAL: Gross neurological examination did not reveal any focal deficits. SKIN: No rashes. - Labs CBC & Chem 7: 08/12/18 04:20 08/12/18 04:20 Labs: Abnormal Lab Results - Last 24 Hours (Table) 08/11/18 08/11/18 08/12/18 Range/Units 12:24 17:11 04:20 RBC 2.86 L (3.80-5.40) m/uL Hgb 8.7 L (11.4-16.0) gm/dL Hct 27.4 L (34.0-46.0) % RDW 16.2 H (11.5-15.5) % Plt Count 27 L (150-450) k/uL Lymphocytes # 0.6 L (1.0-4.8) k/uL PT 12.3 H (9.0-12.0) sec INR 1.2 H (<1.2) APTT 35.5 H (22.0-30.0) sec Fibrinogen 620 H (200-500) mg/dL Calcium (8.4-10.2) mg/dL Alkaline Phosphatase (38-126) U/L Total Protein (6.3-8.2) g/dL Albumin (3.5-5.0) g/dL 08/12/18 08/12/18 Range/Units 04:20 04:20 RBC (3.80-5.40) m/uL Hgb (11.4-16.0) gm/dL Hct (34.0-46.0) % RDW (11.5-15.5) % Plt Count (150-450) k/uL Lymphocytes # (1.0-4.8) k/uL PT (9.0-12.0) sec INR (<1.2) APTT 33.6 H (22.0-30.0) sec Fibrinogen (200-500) mg/dL Calcium 7.7 L (8.4-10.2) mg/dL Alkaline Phosphatase 148 H (38-126) U/L Total Protein 4.2 L (6.3-8.2) g/dL Albumin 1.6 L (3.5-5.0) g/dL Microbiology - Last 24 Hours (Table) 08/11/18 15:00 Urine Culture - Preliminary Urine,Catheterized 08/08/18 15:27 Blood Culture - Preliminary Blood No Growth after 72 hours Assessment and Plan Assessment: urinary bladder cancer, stage IV, status post chemo and radiotherapy and status post nephrostomy tube. With pulmonary metastases Septic shock secondary to UTI, resolved Urinary tract infection with hematuria Possible urinary tract obstruction, need for Bose catheter placement Acute kidney injury, resolved History of DVT on Eliquis. Which is on hold Thrombocytopenia, mostly secondary to sepsis. Hold Eliquis for now Left hilar mass, suspicious for pulmonary metastasis of her urinary bladder cancer Has post obstructive atelectasis History of sleep apnea Plan: This is a pleasant 57 years old female who presents because of septic shock secondary to UTI, she is urinary bladder cancer patient. Continue with antibiotic. Tried to place Bose catheter. Follow-up urology recommendation. Pulmonary/critical care and oncology team consult. Continue with IV fluids and antibiotic for now. Keep holding the Eliquis as long as platelets count less than 50 K.Labs and medication were reviewed.. Continue same treatment. Continue with symptomatic treatment. Resume home medication. Monitor lytes and vitals. DVT and GI prophylaxis. Further recommendations of the clinical course of the patient DVT prophylaxis: Eliquis on hold due to thrombocytopenia GI Prophylaxis: Pepcid Prognosis is guarded
[2018-08-12] MEDS: LACTATED RINGERS 250 ML IV SCH ×3 (12:44→12:47)
[2018-08-12] MEDS: MELATONIN 5 MG TABLET PO SCH (20:10)
[2018-08-12] MEDS: FAMOTIDINE 20 MG TAB PO SCH (20:11)
--- NOTE | 2018-08-12 23:07 | P.PN ---
Subjective Progress Note Date: 08/12/18 Principal diagnosis: Metastatic Bladder Cancer Overall no acute complaints overnight, Platelets 27K, continue to hold Anticoagulation. Objective - Vital Signs Vital signs: Vital Signs Temp 98.9 F 08/12/18 08:00 Pulse 90 08/12/18 08:00 Resp 11 L 08/12/18 08:00 BP 109/70 08/12/18 08:00 Pulse Ox 95 08/12/18 08:00 Intake & Output 08/11/18 08/12/18 08/12/18 18:59 06:59 18:59 Intake Total 2069.479 1500 75 Output Total 475 550 150 Balance 1594.479 950 -75 Weight 104 kg Intake: IV 1125 1500 75 Lactated Ringers 1,000 ml 1125 1500 75 @ 75 mls/hr IV .[id number] [facility] Rx#:[id number] Intake, IV Titration 344.479 Amount Magnesium Sulfate-D5w Pmx 200 1 gm In Dextrose/Water 1 100ml.bag @ 100 mls/hr IVPB Q1H [facility] Rx#: [id number] Norepinephrine 4 mg In 144.479 Sodium Chloride 0.9% 250 ml @ 0.05 MCG/KG/MIN 18. 405 mls/hr IV .[id number] [facility] Rx#:[id number] Oral 600 Output: Urine 475 550 150 Other: Voiding Method Ileal Conduit (Right) Ileal Conduit (Right) Ileal Conduit (Right) Ileal Conduit (Left) Ileal Conduit (Left) Ileal Conduit (Left) - Exam Gen: Alert and oriented in no acute distress Head NC NT Neck Supple, no cervical adenopathy noted Lungs diminished bibasilar, no increased effort Heart - Tachy regular Abdomen lower pelvic tenderness, soft Ext: no edema Evidence of bilateral external nephrostomy tubes and both draining Neuro: no sensory or motor deficits noted - Labs CBC & Chem 7: 08/12/18 04:20 08/12/18 04:20 Labs: Abnormal Lab Results - Last 24 Hours (Table) 08/11/18 08/11/18 08/12/18 Range/Units 12:24 17:11 04:20 RBC 2.86 L (3.80-5.40) m/uL Hgb 8.7 L (11.4-16.0) gm/dL Hct 27.4 L (34.0-46.0) % RDW 16.2 H (11.5-15.5) % Plt Count 27 L (150-450) k/uL Lymphocytes # 0.6 L (1.0-4.8) k/uL PT 12.3 H (9.0-12.0) sec INR 1.2 H (<1.2) APTT 35.5 H (22.0-30.0) sec Fibrinogen 620 H (200-500) mg/dL Calcium (8.4-10.2) mg/dL Alkaline Phosphatase (38-126) U/L Total Protein (6.3-8.2) g/dL Albumin (3.5-5.0) g/dL 08/12/18 08/12/18 Range/Units 04:20 04:20 RBC (3.80-5.40) m/uL Hgb (11.4-16.0) gm/dL Hct (34.0-46.0) % RDW (11.5-15.5) % Plt Count (150-450) k/uL Lymphocytes # (1.0-4.8) k/uL PT (9.0-12.0) sec INR (<1.2) APTT 33.6 H (22.0-30.0) sec Fibrinogen (200-500) mg/dL Calcium 7.7 L (8.4-10.2) mg/dL Alkaline Phosphatase 148 H (38-126) U/L Total Protein 4.2 L (6.3-8.2) g/dL Albumin 1.6 L (3.5-5.0) g/dL Microbiology - Last 24 Hours (Table) 08/11/18 15:00 Urine Culture - Preliminary Urine,Catheterized 08/08/18 15:27 Blood Culture - Preliminary Blood No Growth after 72 hours Assessment and Plan Plan: Assessment and Recommendations: 1. 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 Urethral Obstruction with Bilateral nephrostomy tubes in April 2018 (outside Hospital) 3. Fever: - IV antibiotics 4. Hematuria: - Urology is following - improving 5. DVT (history of) - On Eliquis - Hold - Monitor Bleeding, CBC 6. Leukocytosis - Likely reactive to infection 7. Normocytic Anemia: - Secondary to malignancy and Acute blood loss 8. Thrombocytopenia: - Likely related to sepsis, monitor for bleeding - Monitor CBC Daily - Monitor Coags, Fibrinogen - Hold Eliquis until luis barajaster than 50K Physician Attest: I have completed the full history and physical and developed the above impression and plan and agree with this dictation, dictated as scribe
[2018-08-13] MEDS: LACTATED RINGERS 1,000 ML IV SCH ×2 (04:29→13:19)
[2018-08-13 07:25] LABS: Basophils % (A) 0 %; Eosinophils # (A) 0.1 k/uL (0-0.7); Eosinophils % (A) 1 %; HCT 28.3 % (34.0-46.0); HGB 8.9 gm/dL (11.4-16.0); Hypochromasia Marked; Lymphocytes # (A) 0.8 k/uL (1.0-4.8); Lymphocytes % (A) 10 %; MCH 29.9 pg (25.0-35.0); MCHC 31.3 g/dL (31.0-37.0); MCV 95.5 fL (80.0-100.0); Monocytes # (A) 0.3 k/uL (0-1.0); Monocytes % (A) 4 %; Neutrophils # (A) 6.1 k/uL (1.3-7.7); Neutrophils % (A) 82 %; RBC 2.96 m/uL (3.80-5.40); RDW 15.7 % (11.5-15.5); WBC 7.5 k/uL (3.8-10.6)
[2018-08-13 07:28] LABS: Platelet Count 30 k/uL (150-450)
[2018-08-13 07:37] LABS: Anion Gap 4 mmol/L; Blood Urea Nitrogen 15 mg/dL (7-17); Calcium 7.6 mg/dL (8.4-10.2); Carbon Dioxide 27 mmol/L (22-30); Chloride 106 mmol/L (98-107); Glucose 93 mg/dL (74-99); Sodium 137 mmol/L (137-145)
--- NOTE | 2018-08-13 08:02 | P.PN ---
Subjective this is a pleasant 57 yo F with pmh of the venous thrombosis on anticoagulation as Holly, sleep apnea, stage IV bladder cancer, status post chemotherapy she presents because of lower abdominal pain, urinary bladder pressure and hematuria. She is status post bilateral nephrostomy tube and she's been evaluated by urologist Dr. Rasmussen. On admission patient had septic shock secondary to UTI and she's been on pressors. Her blood pressure gets more stabilized and she is off Levophed today. Her blood pressure 106/76. Heart rate 105. She saturating 94-95% on 3 L oxygen via NC. She had fever of 100.2 yesterday and 99.9 today. She continued to be on ceftriaxone and urine cultures showing Radha albicans. Patient has been evaluated by critical care team who cleared her for discharge out of the ICU. She still complaining of from signif icant pressure symptoms in the bladder with spasms. Plan to try to place Bose catheter today recommended by urologist team. Patient Eliquis was on hold due to thrombocytopenia. Hematology oncology team are following the patient. Patient on multiple pain medication including Bentyl, fentanyl, Neurontin and [place]. Labs and medication were reviewed showing no leukocytosis. Hemoglobin is stable at 8.5. Platelets troponin from 44 down to 30. INR 1.2. Serum creatinine came back to normal at 0.8. High creatinine is normalized. Patient currently on ceftriaxone. 08/12/2018 Patient still have difficulty making urine, they have to straight catheter to send a urine sample. No Bose catheter could be placed. Patient with significant abdominal pain that comes basically in his spasm, severe. No chest pain or dyspnea. Patient is not coughing. If her stomach tube were in place. No fever in the last 24 hours. Blood pressure 109/70. Saturating 95% on 3 L oxygen via NC. Labs from today showing WBC 4.4K, hemoglobin 8.7. Platelets coming down 30 to 27k. No signs of active bleeding. Patient is fully awake and oriented. Eliquis on hold due to thrombocytopenia. Lactic acid back to normal at 1.6. Patient has been off levophed , she was cleared BY ICU team to be transfer to the general medical floor 08/13/2018 Patient is seen and the general medical floor today. She still complaining of from abdominal pain, mostly related to her bladder infection, pain the same since she came to the hospital. Patient does not make urine and she has nephrostomy tube which is draining clear urine. Patient is noted tachypneic however she denies dyspnea. No chest pain. No other respiratory complaints. She is on Ringer lactate 75 mL per hour, Eliquis for history of DVT is on hold d ue to thrombocytopenia mostly related to sepsis. Hematology team R following the case. Continue with ceftriaxone for urinary tract infection. Patient with left hilar mass, Oncology and pulmonary/critical care team are following the patient. Labs reviewed, WBC 7.5K, hemoglobin 8.9 which is stable. Platelets is slightly improved up to 30. INR 1.1. Electrolytes and creatinine are within normal limits. Vitals stable. Prognosis remains guarded Objective - Vital Signs Vital signs: Vital Signs Temp 99.5 F 08/13/18 04:53 Pulse 106 H 08/13/18 04:53 Resp 17 08/13/18 04:53 BP 154/90 08/13/18 04:53 Pulse Ox 93 L 08/13/18 04:53 Intake & Output 08/12/18 08/13/18 08/13/18 18:59 06:59 18:59 Intake Total 1565 225 Output Total 600 900 Balance 965 -675 Weight 104 kg Intake: IV 75 225 Lactated Ringers 1,000 ml 75 225 @ 75 mls/hr IV .[id number] [facility] Rx#:[id number] Intake, IV Titration 890 Amount Lactated Ringers 1,000 ml 640 @ 75 mls/hr IV .[id number] [facility] Rx#:[id number] Lactated Ringers 250 ml @ 250 999 mls/hr IV .Q16M [facility] Rx#:[id number] Oral 600 Output: Urine 600 900 Right Lower Abdomen 300 Other: Voiding Method Ileal Conduit (Right) Ileal Conduit (Right) Ileal Conduit (Left) Ileal Conduit (Left) - Exam GENERAL: The patient is alert and oriented x3, not in any acute distress. Well developed, well nourished. HEENT: Pupils are round and equally reacting to light. EOMI. No scleral icterus. No conjunctival pallor. Normocephalic, atraumatic. No pharyngeal erythema. No thyromegaly. CARDIOVASCULAR: S1 and S2 present. No murmurs, rubs, or gallops. PULMONARY: Chest is clear to auscultation, no wheezing or crackles. -ABDOMEN: Soft, suprapubic tenderness, no rebound tenderness, nondistended, normoactive bowel sounds. No palpable organomegaly. Nephrostomy tube is in Place MUSCULOSKELETAL: No joint swelling or deformity. EXTREMITIES: No cyanosis, clubbing, or pedal edema. NEUROLOGICAL: Gross neurological examination did not reveal any focal deficits. SKIN: No rashes. - Labs CBC & Chem 7: 08/13/18 07:05 08/13/18 07:05 Labs: Abnormal Lab Results - Last 24 Hours (Table) 08/13/18 08/13/18 Range/Units 07:05 07:05 RBC 2.96 L (3.80-5.40) m/uL Hgb 8.9 L (11.4-16.0) gm/dL Hct 28.3 L (34.0-46.0) % RDW 15.7 H (11.5-15.5) % Plt Count 30 L (150-450) k/uL Lymphocytes # 0.8 L (1.0-4.8) k/uL Calcium 7.6 L (8.4-10.2) mg/dL Microbiology - Last 24 Hours (Table) 08/11/18 15:00 Urine Culture - Final Urine,Catheterized 08/08/18 15:27 Blood Culture - Preliminary Blood No Growth after 96 hours Assessment and Plan Assessment: urinary bladder cancer, stage IV, status post chemo and radiotherapy and status post nephrostomy tube. With pulmonary metastases Septic shock secondary to UTI, resolved Urinary tract infection with hematuria Acute kidney injury, resolved History of DVT on Eliquis. Which is on hold Thrombocytopenia, mostly secondary to sepsis. Hold Eliquis for now Left hilar mass, suspicious for pulmonary metastasis of her urinary bladder cancer Has post obstructive atelectasis History of sleep apnea Plan: This is a pleasant 57 years old female who presents because of septic shock secondary to UTI, she is urinary bladder cancer patient. Continue with antibiotic. Tried to place Bose catheter. Follow-up urology recommendation. Pulmonary/critical care and oncology team consult. Continue with IV fluids and antibiotic for now. Keep holding the Eliquis as long as platelets count less than 50 K.Labs and medication were reviewed.. Continue same treatment. Continue with symptomatic treatment. Resume home medication. Monitor lytes and vitals. DVT and GI prophylaxis. Further recommendations of the clinical course of the patient DVT prophylaxis: Eliquis on hold due to thrombocytopenia GI Prophylaxis: Pepcid Prognosis is guarded
[2018-08-13] MEDS: MAGNESIUM OXIDE 400 MG TAB PO SCH ×3 (10:31→22:16)
[2018-08-13] MEDS: FERROUS SULFATE 325 MG TAB PO SCH (10:31)
[2018-08-13] MEDS: OXYBUTYNIN CHLORIDE 5 MG TAB PO SCH ×2 (10:31→22:17)
[2018-08-13] MEDS: SODIUM BICARBONATE TAB 650 MG TAB PO SCH ×3 (10:31→22:16)
[2018-08-13] MEDS: GABAPENTIN 300 MG CAP PO SCH ×2 (10:31→22:16)
[2018-08-13] MEDS: SENNOSIDES 8.6 MG TAB PO SCH (10:32)
[2018-08-13] MEDS: FAMOTIDINE 20 MG TAB PO SCH ×2 (10:32→22:16)
[2018-08-13] MEDS: HYDROmorphone 0.5 MG/0.5 ML SYRINGE IVP PRN (10:36)
[2018-08-13] MEDS ORDERED: LORazepam 0.5 MG TAB PO PRN (16:03)
--- NOTE | 2018-08-13 16:09 | P.PN ---
Subjective Progress Note Date: 08/13/18 Principal diagnosis: Metastatic Bladder Cancer Complains of pain in abdomen with some relief with dilaudid, she states no further treatment and/or tests. Discussed with Dr. Morton as well, offered home hospice care although she is concerned with daughters home therefore will rajiv burns evaluate with hospice info meeting for hospice house. Patient agrees justs asks for her daughter to be involved. Objective - Vital Signs Vital signs: Vital Signs Temp 99 F 08/13/18 11:15 Pulse 109 H 08/13/18 11:15 Resp 18 08/13/18 11:15 BP 131/85 08/13/18 11:15 Pulse Ox 92 L 08/13/18 11:20 Intake & Output 08/12/18 08/13/18 08/13/18 18:59 06:59 18:59 Intake Total 1565 225 600 Output Total 600 900 441 Balance 965 -675 159 Weight 104 kg Intake: IV 75 225 600 Lactated Ringers 1,000 ml 75 225 600 @ 75 mls/hr IV .[id number] [facility] Rx#:[id number] Intake, IV Titration 890 Amount Lactated Ringers 1,000 ml 640 @ 75 mls/hr IV .[id number] [facility] Rx#:[id number] Lactated Ringers 250 ml @ 250 999 mls/hr IV .Q16M [facility] Rx#:[id number] Oral 600 Output: Urine 600 900 440 Right Lower Abdomen 300 440 Emesis 1 Other: Voiding Method Ileal Conduit (Right) Ileal Conduit (Right) Ileal Conduit (Left) Ileal Conduit (Left) # Voids 1 # Bowel Movements 1 - Exam Gen: Alert pale, greyish with lethargy although answers appropriately in no acute distress Head NC NT Neck Supple, no cervical adenopathy noted Lungs diminished bibasilar, no increased effort Heart - Tachy regular Abdomen lower pelvic tenderness worsened, soft Ext: no edema Evidence of bilateral external nephrostomy tubes and both draining Neuro: no sensory or motor deficits noted - Labs CBC & Chem 7: 08/13/18 07:05 08/13/18 07:05 Labs: Abnormal Lab Results - Last 24 Hours (Table) 08/13/18 08/13/18 Range/Units 07:05 07:05 RBC 2.96 L (3.80-5.40) m/uL Hgb 8.9 L (11.4-16.0) gm/dL Hct 28.3 L (34.0-46.0) % RDW 15.7 H (11.5-15.5) % Plt Count 30 L (150-450) k/uL Lymphocytes # 0.8 L (1.0-4.8) k/uL Calcium 7.6 L (8.4-10.2) mg/dL Microbiology - Last 24 Hours (Table) 08/11/18 15:00 Urine Culture - Final Urine,Catheterized 08/08/18 15:27 Blood Culture - Preliminary Blood No Growth after 96 hours Assessment and Plan Plan: Assessment and Recommendations: 1. 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 Urethral Obstruction with Bilateral nephrostomy tubes in April 2018 (outside Hospital) 3. Fever: - IV antibiotics 4. Hematuria: - Urology is following - improving 5. DVT (history of) - On Eliquis - Hold - Monitor Bleeding, CBC 6. Leukocytosis - Likely reactive to infection 7. Normocytic Anemia: - Secondary to malignancy and Acute blood loss 8. Thrombocytopenia: - Likely related to sepsis, monitor for bleeding - Monitor CBC Daily - Monitor Coags, Fibrinogen - Hold Eliquis until platlets grezter than 50K patient expresses no further test and goals of care as comfort, although concerned for home hospice because would be at daughters home. Will have hospice consult today and discuss options of hospice house with patient and daughter - Increase dilaudid prn - Increased fentanyl 75mcg - Add prn Ativan - Add bowel regimen Discussed in detail with Dr. Morton primary team Physician Attest: I have completed the full history and physical and developed the above impression and plan and agree with this dictation, dictated as scribe
[2018-08-13] MEDS: HYDROmorphone 1 MG/ML 1 ML SYRINGE IVP PRN (18:00)
[2018-08-13] MEDS ORDERED: SENNOSIDES-DOCUSATE SODIUM 1 EACH TAB PO SCH (21:00)
[2018-08-13] MEDS: MELATONIN 5 MG TABLET PO SCH (22:17)
[2018-08-14] MEDS: HYDROmorphone 1 MG/ML 1 ML SYRINGE IVP PRN (00:49)
[2018-08-14] MEDS: LACTATED RINGERS 1,000 ML IV SCH (01:56)
[2018-08-14 02:20] LABS: Glucose,Whole Blood 105 mg/dL (75-99)
[2018-08-14] MEDS ORDERED: LORazepam 2 MG/ML INJ IV PRN (02:47)
[2018-08-14] MEDS ORDERED: MORPHINE SULFATE 4 MG/ML SYRINGE IVP ONE (02:47)
[2018-08-14] MEDS ORDERED: ARTIFICIAL TEARS-HYPROMELLOSE DROPS 15 ML BTL BOTH EYES PRN (02:51)
[2018-08-14] MEDS ORDERED: ATROPINE OPHTH SOLN 1% 5ML BTL SUBLINGUAL PRN (02:51)
[2018-08-14] MEDS ORDERED: ONDANSETRON 4 MG/2 ML VIAL IVP PRN (02:51)
[2018-08-14] MEDS ORDERED: DRY MOUTH SPRAY 44.3 SPRAY/44.3 ML SPRAY MUCOUS MEM PRN (02:51)
[2018-08-14] MEDS ORDERED: HYDROmorphone 1 MG/ML 1 ML SYRINGE IVP PRN (02:51)
[2018-08-14] MEDS ORDERED: MORPHINE SULFATE 2 MG/ML SYRINGE IV PRN ×2 (02:51→03:17)
[2018-08-14] MEDS ORDERED: SCOPOLAMINE 1.5MG/72HR PATCH TRANSDERM SCH (03:00)
[2018-08-14 03:44] VITALS: BP 88/47; PULSE 168; RESP 40; TEMP 100.9
--- NOTE | 2018-08-17 14:01 | CDI ---
Documentation Clarification Form Date: 08/17/2018 1:20:03 PM From: Linda Payne RN, CCDS Email: [email or web address] Admit Date: 08/08/2018 6:41:00 PM Patient Name: Tamar Huizar Visit Number: [id number] Discharge Date: 08/14/2018 6:45:00 AM ATTENTION: The Clinical Documentation Specialists (CDI) and [facility] Coding Staff appreciate your assistance in clarifying documentation. Please respond to the clarification below the line at the bottom and electronically sign. The CDI & [facility] Coding staff will review the response and follow-up if needed. Please note: Queries are made part of the Legal Health Record. If you have any questions, please contact the author of this message via ITS. Dr. Sarthak Cagle The patient presented with a fever and sepsis History/Risk Factors: Bladder cancer with lung mets, hilar mass Tobacco use: ex-smoker, uses marijuana Clinical Indicators: SOB, CXR shows possible post obstructive changes, atelectasis and possible pneumonia, venous lactic acid was 5.5 Vital signs: tachycardic, RR 10-40 Pulse oximetry: 81%-96% Lung/Breathing assessment: few scattered mild rhonchi Treatment: oxygen, antibiotics, pressors Continuous Pulse ox: done every 15-30 minutes O2: 2-6LNC In your professional opinion, can you please clarify if these findings signify one of the following conditions? Acuity Acute Chronic Acute on Chronic Specificity Respiratory Failure (further specify (if known)): With hypercapnia? (pCO2 >50 and pH <7.35) With hypoxia? (pO2 <60 mm Hg or SpO2 <91% on room air) Other Diagnosis, please specify Unable to determine MTDD
--- NOTE | 2018-08-23 14:35 | CDI ---
Documentation Clarification Form Date: 08/17/2018 1:20:00 PM From: Linda Payne RN, CCDS Email: [email or web address] Admit Date: 08/08/2018 6:41:00 PM Patient Name: Tamar Huizar Visit Number: [id number] Discharge Date: 08/14/2018 6:45:00 AM ATTENTION: The Clinical Documentation Specialists (CDI) and [facility] Coding Staff appreciate your assistance in clarifying documentation. Please respond to the clarification below the line at the bottom and electronically sign. The CDI & [facility] Coding staff will review the response and follow-up if needed. Please note: Queries are made part of the Legal Health Record. If you have any questions, please contact the author of this message via ITS. Dr. Romero Sheet The patient presented with a fever and sepsis History/Risk Factors: Bladder cancer with lung mets, hilar mass Tobacco use: ex-smoker, uses marijuana Clinical Indicators: SOB, CXR shows possible post obstructive changes, atelectasis and possible pneumonia, venous lactic acid was 5.5 Vital signs: tachycardic, RR 10-40 Pulse oximetry: 81%-96% Lung/Breathing assessment: few scattered mild rhonchi Treatment: oxygen, antibiotics, pressors Continuous Pulse ox: done every 15-30 minutes O2: 2-6LNC In your professional opinion, can you please clarify if these findings signify one of the following conditions? Acuity Acute Chronic Acute on Chronic Specificity Respiratory Failure (further specify (if known)): With hypercapnia? (pCO2 >50 and pH <7.35) With hypoxia? (pO2 <60 mm Hg or SpO2 <91% on room air) Other Diagnosis, please specify Clinically insignigficant Unable to determine Unable to determine MTDD
--- NOTE | 2018-08-31 21:29 | P.DS ---
Providers Date of admission: 08/08/18 18:41 Attending physician: Sarthak Cagle Consults: 08/08/18 18:39 Consult Physician Urgent Consulting Provider: Josee Abebe Consult Reason/Comments: Critical care management Do you want consulting provider notified?: Already Contacted 08/09/18 10:00 Consult Physician Routine Consulting Provider: Barney Camilo Consult Reason/Comments: mucinous adenocarcinoma of bladder, UTI, septic shock Do you want consulting provider notified?: Yes 08/09/18 10:01 Consult Physician Routine Consulting Provider: Nguyễn Forbes Consult Reason/Comments: mucinous adenocarcinoma of bladder, left hilar mass Do you want consulting provider notified?: Yes Primary care physician: [facility] Course: Dx urinary bladder cancer, stage IV, status post chemo and radiotherapy and status post nephrostomy tube. With pulmonary metastases Septic shock secondary to UTI, Urinary tract infection with hematuria Acute kidney injury, History of DVT on Eliquis. Which is on hold Thrombocytopenia, mostly secondary to sepsis. Hold Eliquis for now Left hilar mass, suspicious for pulmonary metastasis of her urinary bladder cancer Has post obstructive atelectasis History of sleep apnea hospital course this is a 57 yo F with pmh of the venous thrombosis on anticoagulation as Eliquis, sleep apnea, stage IV bladder cancer, status post chemotherapy she presents because of severe lower abdominal pain, urinary bladder pressure and hematuria. She is status post bilateral nephrostomy tube and she's been evaluated by urologist Dr. Camilo. On admission patient had septic shock secondary to UTI and she's been on pressors. pt was admitted to the ICU and treated with the care of critical care team , she was treated with antibiotic and fluid, she was followed by several consultants including hematologic, urology as well as critical care team. she had bilateral nephrostomy tubes. after stablization she was transfered to the general medical floor. eventually pt refused further treatment or test and opted for hospice care. pt tole together with Emelia from the oncology team , at that time pt had capacity to make medical decision. her decision was respected and further treatement and testing were held and hospice care was called. pt eventually early childhood specialist on 08/14/18 Plan - Discharge Summary Discharge Rx Participant: Yes New Discharge Prescriptions: No Action Sennosides [Senna] 17.2 mg PO BID Melatonin 10 mg PO HS@2200 Ferrous Sulfate [Iron (65 MG Elemental)] 325 mg PO DAILY@1000 Oxybutynin Chloride [Ditropan] 5 mg PO BID@1000,0 Gabapentin [Neurontin] 300 mg PO BID@1000,2200 fentaNYL 50MCG/HR PATCH [Duragesic 50MCG/HR] 1 patch TRANSDERM Q72H #5 patch oxyCODONE HCL [OxyIR] 5 mg PO Q3H PRN PRN Reason: Pain Ondansetron [Zofran] 4 mg PO Q12HR PRN PRN Reason: Nausea Apixaban [Eliquis] See Taper PO BID Discharge Medication List Ferrous Sulfate [Iron (65 MG Elemental)] 325 mg PO DAILY@1000 07/28/18 [History] Gabapentin [Neurontin] 300 mg PO BID@1000,219907/28/18 [History] Melatonin 10 mg PO HS@219907/28/18 [History] Oxybutynin Chloride [Ditropan] 5 mg PO BID@1000,219907/28/18 [History] Sennosides [Senna] 17.2 mg PO BID 07/28/18 [History] fentaNYL 50MCG/HR PATCH [Duragesic 50MCG/HR] 1 patch TRANSDERM Q72H #5 patch 07/29/18 [Rx] oxyCODONE HCL [OxyIR] 5 mg PO Q3H PRN 07/30/18 [History] Apixaban [Eliquis] See Taper PO BID 08/08/18 [History] Ondansetron [Zofran] 4 mg PO Q12HR PRN 08/08/18 [History] Follow up Appointment(s)/Referral(s): Howard Geiger DO [Primary Care Provider] - 1-2 days [facility] Visiting Nurse, [NON-STAFF] - 1-2 Days Discharge Disposition: - Preliminary Cause of Preliminary Cause of : metastatic urinary bladder cancer, stage IV, With pulmonary metastases
== END 2018-08-14 06:45 | disposition expired | DRG 871 ==
LOC: EC 14:13 → 2SICU 18:41 → 3NMEDONC 08-12 11:49
PROVIDERS: ADMIT Hospitalist; ATTEND Hospitalist
DX: A41.9 Sepsis, unspecified organism (principal); R65.21 Severe sepsis with septic shock; C78.00 Secondary malignant neoplasm of unspecified lung; C79.51 Secondary malignant neoplasm of bone; E44.1 Mild protein-calorie malnutrition; E87.2 Acidosis; I47.1 Supraventricular tachycardia; I82.402 Acute embolism and thrombosis of unspecified deep veins of left lower extremity; J98.11 Atelectasis; N13.6 Pyonephrosis; N17.9 Acute kidney failure, unspecified; C78.7 Secondary malignant neoplasm of liver and intrahepatic bile duct; C77.9 Secondary and unspecified malignant neoplasm of lymph node, unspecified; B95.2 Enterococcus as the cause of diseases classified elsewhere; D63.0 Anemia in neoplastic disease; D69.6 Thrombocytopenia, unspecified; Z66 Do not resuscitate; Z51.5 Encounter for palliative care; E03.9 Hypothyroidism, unspecified; E66.9 Obesity, unspecified; Z68.37 Body mass index [BMI] 37.0-37.9, adult; E83.42 Hypomagnesemia; E86.1 Hypovolemia; E87.6 Hypokalemia; E87.70 Fluid overload, unspecified; F40.240 Claustrophobia; G47.33 Obstructive sleep apnea (adult) (pediatric); I10 Essential (primary) hypertension; I49.3 Ventricular premature depolarization; K43.9 Ventral hernia without obstruction or gangrene; N32.89 Other specified disorders of bladder; Z79.01 Long term (current) use of anticoagulants; Z79.899 Other long term (current) drug therapy; Z86.718 Personal history of other venous thrombosis and embolism; Z87.891 Personal history of nicotine dependence; Z92.21 Personal history of antineoplastic chemotherapy; Z90.13 Acquired absence of bilateral breasts and nipples; Z85.51 Personal history of malignant neoplasm of bladder; Z92.3 Personal history of irradiation; Z80.52 Family history of malignant neoplasm of bladder; Z93.6 Other artificial openings of urinary tract status; Z85.3 Personal history of malignant neoplasm of breast; Z79.891 Long term (current) use of opiate analgesic; Z99.89 Dependence on other enabling machines and devices
CPT/HCPCS: 36415; 71045; 71046; 80048; 80053; 81001; 82330; 82533; 83605; 83735; 84100; 84443; 85025; 85384; 85610; 85730; 87040; 87086; 87502; 93005; 96361; 96365; 96367; 99285